=== PATIENT | female | born 1965 | race African-American/Black ===

== ENCOUNTER 2018-04-09 16:13 | Emergency (ER) | payer MEDICARE, MEDICAID | END 2018-04-09 16:57 | disposition home or self-care (01) | LOC: SCSER 16:13 | DX: S91.202A Unspecified open wound of left great toe with damage to nail, initial encounter (principal); S91.205A Unspecified open wound of left lesser toe(s) with damage to nail, initial encounter; E11.40 Type 2 diabetes mellitus with diabetic neuropathy, unspecified; Z79.4 Long term (current) use of insulin; I10 Essential (primary) hypertension; X58.XXXA Exposure to other specified factors, initial encounter | CPT/HCPCS: 99283 ==

== ENCOUNTER 2020-02-20 10:33 | Inpatient (IN) | payer MEDICARE, MEDICAID ==
[~2020-02-20 10:33] MED LIST: Dexamethasone 20 MG/5 ML VIAL ONE; Glycopyrrolate 0.2 MG/ML 5 ML SYRINGE ONE; Lidocaine 1% PF 5 ML VIAL ONE; PHENYLEPHRINE-NS 100 MCG/ML 10 ML SYRINGE ONE; PROPOFOL 200 MG/20 ML VIAL ONE; Rocuronium Bromide 10 MG/ML (10ML VIAL) ONE; ePHEDrine 50 MG/ML VIAL ONE
[2020-02-20] MEDS ORDERED: Fentanyl 100 MCG/2 ML VIAL ONE ×4 (10:39→15:24)
[2020-02-20] MEDS ORDERED: Boostrix 0.5 ML (Tdap) VIAL ONE (10:50)
--- NOTE | 2020-02-20 11:09 | RAD ---
Exam: Right ankle 3 views: HISTORY: Injury from a fall, open ankle fracture COMPARISON: None FINDINGS: Severely displaced trimalleolar ankle fracture dislocation with disruption of the ankle mortise with possible minimal air within the joint IMPRESSION: Trimalleolar fracture dislocation with marked disruption of the ankle mortise and considerable malali gnment with what appears to be an exposed medial malleolus.
[2020-02-20 11:48] LABS: Anisocytosis SLIGHT = 6-15 cells (100X) (0-5/hpf); Band 12 % (5-11); Hemoglobin 7.6 g/dL (12.0-16.0); Lymphocytes 8 % (21-51); MDiff Complete? YES; Mean Corpuscular HGB CONC 33.9 g/dL (32.0-36.0); Mean Corpuscular Hemoglobin 33.1 pg (27.0-31.0); Mean Corpuscular Volume 97.8 fL (78.0-98.0); Monocytes 8 % (0-10); Neutrophil 72 % (42-75); Platelet Count 85 thou/uL (130-400); Platelet Morphology Comment Appears Decreased; Polychromasia SLIGHT = 2-3 cells (100X) (0-2/hpf); RBC Distribution Width 13.9 % (11.5-14.5); Red Blood Cell (RBC) Count 2.29 mill/uL (4.20-5.40); White Blood Cell (WBC) Count 8.8 thou/uL (4.8-10.8)
[2020-02-20 11:56] LABS: ALT (SGPT) 25 U/L (8-55); AST (SGOT) 38 U/L (5-34); Albumin 2.8 g/dL (3.5-5.0); Alkaline Phosphatase 144 U/L (40-110); Anion Gap 20 mmol/L (10-20); BUN (Urea Nitrogen) 66 mg/dL (9.8-20.1); Bilirubin, Total 3.6 mg/dL (0.2-1.2); Calc. Creatinine Clearance 0 mL/min (70-130); Calcium 9.2 mg/dL (7.8-10.44); Carbon Dioxide 19 mmol/L (22-29); Chloride 108 mmol/L (98-107); Globulin 4.8 g/dL (2.4-3.5); Glucose 486 mg/dL (70-105); Potassium 4.9 mmol/L (3.5-5.1); Protein, Total 7.6 g/dL (6.0-8.3); Sodium 142 mmol/L (136-145)
[2020-02-20 12:24] LABS: INR-International Normal Ratio 1.4; PTT 37.6 sec (22.9-36.1); Prothrombin Time 17.6 sec (12.0-14.7)
[2020-02-20 12:25] LABS: Magnesium 2.3 mg/dL (1.6-2.6); Phosphorus 4.2 mg/dL (2.3-4.7)
--- NOTE | 2020-02-20 13:24 | RAD ---
AP CHEST: HISTORY: Fall at home with injury to ankle. FINDINGS: Lungs appear clear. No infiltrate or vascular congestion. Heart size normal. Osseous structures appear intact. IMPRESSION: No acute finding. POS: AGW
--- NOTE | 2020-02-20 13:25 | RAD ---
RIGHT KNEE 4 VIEWS: HISTORY: Fall at home with ankle fracture. FINDINGS: Joint spaces are preserved. Mild degenerative change at the knee. No fracture. IMPRESSION: No acute finding. POS: AGW
--- NOTE | 2020-02-20 13:25 | RAD ---
RIGHT HIP 2 VIEWS: HISTORY: Fall at home with ankle fracture. FINDINGS: Femoral head contour is normal. No fracture or significant degenerative change. No osseous abnormal ity identified. IMPRESSION: No acute finding. POS: AGW
[2020-02-20] MEDS ORDERED: hydrALAZINE 20 MG/ML VIAL SLOW IVP PRN ×2 (13:36→21:06)
[2020-02-20] MEDS ORDERED: Dextrose 50% Abboject 50 ML SYRINGE SLOW IVP PRN ×2 (13:36→21:05)
[2020-02-20] MEDS ORDERED: Dextrose 5% in Water 1,000 ML IV PRN ×2 (13:36→21:06)
[2020-02-20] MEDS ORDERED: Ondansetron PF 4 MG/2 ML Vial IVP PRN (13:36)
[2020-02-20] MEDS ORDERED: Insulin Regular 300 UNITS/3 ML VIAL SC PRN (13:36)
[2020-02-20] MEDS ORDERED: Fentanyl 100 MCG/2 ML VIAL SLOW IVP PRN ×2 (13:40→21:06)
[2020-02-20] MEDS ORDERED: Sodium Chloride 0.9% 1,000 ML IV SCH (13:45)
[2020-02-20] MEDS ORDERED: Insulin Regular 300 UNITS/3 ML VIAL ONE ×3 (14:00→15:19)
--- NOTE | 2020-02-20 14:31 | HP ---
CONSULTING PHYSICIAN: Jose Oquendo MD HISTORY OF PRESENT ILLNESS: The patient is a 54-year-old female, presented to the emergency department via EMS after a mechanical fall from one step. The patient reports she rolled her ankle and fell onto her right side. She denies hitting her head or loss of consciousness. Does not take any anticoagulation. The patient's motor and sensation function of bilateral upper and lower extremities are at baseline. She reports that she has tingling in her fingers and feet with decreased sensation all the time. This is from uncontrolled diabetes and has been going on for the past year or more. The patient denies any pain anywhere else. She complains of chronic abdominal pain after a hernia repair with mesh. She denies chest pain, shortness of breath, nausea, vomiting, diarrhea at this time. PAST MEDICAL HISTORY: Includes diabetes, high blood pressure, hyperlipidemia, chronic anemia. PAST SURGICAL HISTORY: Abdominal hernia repair with mesh, hysterectomy. SOCIAL HISTORY: The patient lives at home. She uses a walker to get around the house sometimes. Does not use a walker outside the house. She denies any tobacco use. Reports drinking about 2 glasses of wine a day. Denies any drug use. MEDICATIONS: The patient is a poor historian, but reports she takes Tylenol and metformin. She is supposed to be taking insulin as well, but is intermittently compliant. She does not have a primary care physician anymore as she says she does not like that physician and she was not helping her. She uses [facility] in [facility] and that was due to for her medications. The patient also takes tramadol p.r.n. ALLERGIES: NO KNOWN DRUG ALLERGIES. PHYSICAL EXAMINATION: VITAL SIGNS: Temperature 98.2, pulse 97, respirations 18, oxygen saturation 100% on 2 L nasal cannula, and blood pressure 108/65. PRIMARY SURVEY: Airway intact. Adequate breath sounds bilaterally. 2+ pulses in bilateral radials, femorals, and DPs. GCS 15. Gross motor and sensation are intact. The patient has an open fracture to her right ankle, which has been splinted. Bleeding is controlled. SECONDARY SURVEY: HEAD: Normocephalic, atraumatic. No gross palpable skull deformities or tenderness. ENT: No signs of trauma. EYES: Pupils 3 to 2, equal, round, reactive to light bilaterally. C-SPINE: No step-offs or deformities. Nontender. C-collar not in place. CHEST: Nontender. No crepitus. No abrasions or ecchymosis. Equal chest movement. ABDOMEN: Soft, nontender, nondistended. PELVIS: Stable to palpation. Right side lateral tenderness with no signs of deformity. RECTAL: Deferred. GENITOURINARY: Deferred. BACK/SPINE: No step-offs, deformities, or tenderness to palpation of thoracic or lumbar spine. No abrasions or ecchymosis noted. 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 Gross normal sensation x4 extremities. LABORATORY FINDINGS: White count 8.8, hemoglobin 7.6, hematocrit 22.4, platelets 85. INR 1.4. Sodium 142, potassium 4.9, chloride 109, bicarb 19, BUN 66, creatinine 2.05, glucose 486, phosphorus 4.2, magnesium 2.3, total bilirubin 3.5, AST 38, ALT 25. DIAGNOSTIC FINDINGS: X-ray of the right hip demonstrates no acute findings. X-ray of the right knee demonstrates no acute findings. X-ray of the right ankle demonstrates a trimalleolar fracture/dislocation with marked disruption of the ankle mortise and considerable malalignment with what appears to be an exposed medial malleolus. Chest x-ray demonstrates no acute findings. ASSESSMENT: 1. Status post mechanical fall from standing. 2. Right open trimalleolar fracture/dislocation. 3. Acute hyperglycemia. 4. History of diabetes, hyperlipidemia, hypertension, and chronic anemia. PLAN: The patient will be admitted to the Trauma Service. She will go to the regular surgical nursing floor. We will treat her hyperglycemia. She is to receive IV fluids and insulin down here in the emergency department and then go to Day Stay, and then subsequently to the OR before going to the floor. Postop, she will work with Physical and Occupational Therapy. We will start the patient on folic acid and vitamin C. We will complete a med rec and restart her medications as clinically indicated. We will also complete a troponin preoperatively. If there is concern, we will consult Cardiology for preoperative evaluation. EKG is unconcerning. The patient is not having any active signs of OK, but is very unhealthy at baseline. We will have packed red blood cells and FFP on hold for the OR. This patient was discussed with Dr. Coon before this dictation. Job ID: [id number]
[2020-02-20 14:41] LABS: Troponin I Less than 0.010 ng/mL (< 0.028)
[2020-02-20] MEDS ORDERED: Gabapentin 300 MG CAP PO SCH ×2 (15:00→21:00)
[2020-02-20 15:07] LABS: SARS-CoV-2 NAA Rapid Test Not Detected (NotDetected)
--- NOTE | 2020-02-20 16:03 | RAD ---
Exam:3 views right ankle HISTORY: Fracture. External cast placement and reduction. COMPARISON: 02/20/2020 at 10:39 AM FINDINGS: Interval placement of overlying fiberglass cast. Limited evaluation of fine bony detail. Pe rsistent dislocation of the distal fibula and medial malleolus to remain. There is diffuse bone demineralization. IMPRESSION: External casting material placement. Persistent displacement.
[2020-02-20] MEDS ORDERED: Phenylephrine 10 MG/ML VIAL ONE (16:06)
[2020-02-20] MEDS ORDERED: Ferrous Sulfate 325 MG TAB PO SCH (17:00)
--- NOTE | 2020-02-20 17:14 | RAD ---
Exam:Intraoperative fluoroscopy HISTORY: ORIF right ankle COMPARISON: None Exposure: 106.2 seconds, 2.43 mg FINDINGS: 3 intraoperative fluoroscopic images demonstrate internal fixation placement of a single wi re along the distal fibula and 2 screws at the level of the medial malleolus. IMPRESSION: Intraoperative fluoroscopy as above.
[2020-02-20] MEDS ORDERED: Promethazine HCl 25 MG/ML VIAL SLOW IVP PRN ×2 (17:43→18:18)
[2020-02-20] MEDS ORDERED: Promethazine HCl 25 MG/ML VIAL IM PRN ×2 (17:43→18:18)
[2020-02-20] MEDS ORDERED: Ondansetron HCl/PF 4 MG/2 ML Vial IVP PRN ×2 (17:43→18:18)
[2020-02-20 18:29] LABS: Hemoglobin A1c 8.8 % (4.0-6.0)
[2020-02-20] MEDS: Acetaminophen 325 MG TAB PO SCH ×3 (19:49→23:17)
[2020-02-20] MEDS: traMADol HCl 50 MG TAB PO SCH ×3 (19:50→23:17)
--- NOTE | 2020-02-20 20:01 | CON ---
DATE OF CONSULTATION: 02/20/2020 HISTORY OF PRESENT ILLNESS: Ms. Noriega is a 54-year-old female, status post ground level fall, sustaining an open right ankle fracture. The patient was per report having pain in her right foot earlier this weekend on Friday. She is a diabetic. She has neuropathic foot. Per report, she has difficulty with moving her toes. She has falls secondary to this. The patient's pain is increasing, has had issues since that time. The patient presents with consult by ER for right open fracture with Dr. Douglass. The patient is currently splinted, closed reduced on-call at the OR. PAST MEDICAL HISTORY: Significant for end-stage liver disease, cirrhosis, hypertension, and diabetes with diabetic neuropathy on insulin. PAST SURGICAL HISTORY: Hernia repair and hysterectomy. ALLERGIES: NO KNOWN DRUG ALLERGIES. MEDICATIONS: Unknown. Reported; 1. Atenolol. 2. Lisinopril. 3. Lactulose. 4. Metformin. 5. Tramadol. 6. Insulin. SOCIAL HISTORY: The patient states she drinks 2 to 3 drinks a day. The patient lives with her friend. Denies illicit drug use. No history of smoking tobacco products. REVIEW OF SYSTEMS: Negative except for as above. PHYSICAL EXAMINATION: VITAL SIGNS: The patient's vital signs in the ED were blood pressure 108/69, 97 pulse, 18 rate, and temperature 98.2. Pain 7/10. O2 saturations 100% on 2 L. GENERAL: Alert and oriented female, in no acute distress. Resting in bed. EXTREMITIES: Right lower extremity, the patient has minimal pain with manipulation of the joint. She has a splint clean, dry, and intact. There is a 10 cm laceration on the medial aspect of the ankle, where the medial malleolus protruded per ER report. The patient has warm and perfused toes. She has sluggish refill. The patient just cannot flex or extend her toes, has limited sensation with severe pinch. No knee effusion. No hip external rotation pain. LABORATORY DATA: She has an INR of 1.4. She has a CBC of 7.6 and 22. Alkaline phosphatase of 144 and AST of 38. The patient has 85 platelets. Glucose at bedside was 413. IMPRESSION: Right open ankle fracture dislocation neuropathic foot, poorly-controlled diabetic with end-stage liver disease, currently in diabetic ketoacidosis. ASSESSMENT AND PLAN: The patient will have her blood sugars improved. The patient requires an open reduction and internal fixation versus external fixator placement versus transcalcaneal pin to help with maintaining her ankle joint allowing her wound to heal. I discussed with the patient she has a significant problem that could lead to amputation of her right limb. I discussed the risks and benefits of surgery to include pain, scar, bleeding, infection, damage to vital structures, decreased range of motion and strength, failure of surgery, need for hardware removal, need for future surgeries, loss of life or limb. I explained to her that her lack of medical care will potentially lead to her untimely as well as her loss for leg, we can better control diabetes and her end-stage liver disease. The patient will be admitted to Trauma. She will have her blood sugars improved in the ED for going urgently to the surgery. She received Ancef and tetanus per protocol. Job ID: [id number] [facility]
[2020-02-20] MEDS ORDERED: Ascorbic Acid 500 mg Chewable Tablet PO SCH (21:00)
[2020-02-20] MEDS ORDERED: Famotidine 20 MG TAB PO SCH (21:00)
[2020-02-20] MEDS ORDERED: Senokot S 8.6-50 MG TAB PO SCH (21:00)
[2020-02-20 21:01] LABS: #Basophils 0.1 thou/uL (0.0-0.2); #Lymphocytes 0.2 thou/uL (1.20-3.40); #Monocytes 0.4 thou/uL (0.11-0.59); #Neutrophils 6.2 thou/uL (1.40-6.50); %Basophils 1.6 % (0.0-1.0); %Eosinophils 0.1 % (0.0-10.0); %Lymphocytes 3.4 % (21.0-51.0); %Monocytes 5.4 % (0.0-10.0); %Neutrophils 89.5 % (42.0-75.0); Hemoglobin 9.9 g/dL (12.0-16.0); Mean Corpuscular HGB CONC 32.8 g/dL (32.0-36.0); Mean Corpuscular Hemoglobin 32.6 pg (27.0-31.0); Mean Corpuscular Volume 99.4 fL (78.0-98.0); Mean Platelet Volume 9.3 fL (7.4-10.4); Platelet Count 58 thou/uL (130-400); RBC Distribution Width 15.2 % (11.5-14.5); Red Blood Cell (RBC) Count 3.04 mill/uL (4.20-5.40); White Blood Cell (WBC) Count 6.9 thou/uL (4.8-10.8)
[2020-02-20 21:19] LABS: Anion Gap 19 mmol/L (10-20); BUN (Urea Nitrogen) 53 mg/dL (9.8-20.1); Calc. Creatinine Clearance 0 mL/min (70-130); Carbon Dioxide 20 mmol/L (22-29); Chloride 113 mmol/L (98-107); Glucose 310 mg/dL (70-105); Magnesium 2.1 mg/dL (1.6-2.6); Phosphorus 4.2 mg/dL (2.3-4.7); Potassium 5.6 mmol/L (3.5-5.1); Sodium 146 mmol/L (136-145)
[2020-02-20] MEDS ORDERED: Lactated Ringer's 1,000 ML IV SCH (21:45)
[2020-02-20] MEDS: Senokot S 8.6-50 MG TAB PO SCH (21:53)
[2020-02-20] MEDS: Famotidine 20 MG TAB PO SCH (21:53)
[2020-02-20] MEDS: Ascorbic Acid 500 mg Chewable Tablet PO SCH (21:54)
[2020-02-20] MEDS: cefTRIAXone\\ROCEPHIN 2 GM in Sodium Chloride 0.9% 100 ML IVPB SCH (21:54)
[2020-02-20] MEDS: Insulin Regular 300 UNITS/3 ML VIAL SC PRN (21:55)
--- NOTE | 2020-02-20 23:52 | OP ---
DATE OF PROCEDURE: 02/20/2020 PREOPERATIVE DIAGNOSES: 1. Right open ankle fracture dislocation, trauma ankle fracture. 2. 7 cm traumatic laceration. POSTOPERATIVE DIAGNOSES: 1. Right open ankle fracture dislocation, trauma ankle fracture. 2. 7 cm traumatic laceration. PROCEDURE PERFORMED: 1. Irrigation and debridement, open fracture. 2. Open reduction, internal fixation of trauma ankle fracture with operative fixation lateral and medial malleolus. 3. Application of incisional wound VAC. 4. Closure of a 7 cm laceration. 5. Application of short-leg splint. PNEUMATIC TOOL REPAIRER: Shemar Sarmiento. ANESTHESIA: Patient received general anesthesia. ESTIMATED BLOOD LOSS: 100 mL. TOURNIQUET TIME: 35 minutes at 300 mmHg. URINE OUTPUT: None. IV FLUIDS: 900, 2 units of blood. IMPLANTS: Patient received a 2 x 3.5 cannulated screw, 3 x 3 mm flexible nail, as well as incisional wound VAC. COMPLICATIONS: None. HISTORY OF PRESENT ILLNESS: Ms. Noriega is a 54-year-old female, who presents with open ankle fracture, dislocation, 7 cm laceration transverse to medial aspect is trimalleolar ankle fracture. We discussed with the patient that she has a diabetic ketoacidosis. She is an arthrosis patient. She has a neuropathy. I discussed with her that I have a big concern of her potential healing of this wound. I have concern that she may displace the fracture if she walks on it and says she may lose her leg. I discussed the risks and benefits of surgery to include pain, scar, bleeding, infection, damage to vital structures, decreased range of motion and strength, fracture above the stem, implants, need for further surgeries, removed of the hardware, damage to vital structures, loss of life, limb. The patient understood these risks and benefits, elected to proceed. DESCRIPTION OF PROCEDURE: After time-out was performed, the patient's right lower extremity was prepped and draped in a sterile fashion with Betadine. After time-out, we started working on the leg with washing the joint, dislocating the joint. We saw all the posterior tendons through the medial wound, there was 7 cm laceration that was transverse right at the ankle joint line. We extended about a cm and a half to help with skin tension built. We have to use stab holes to place our medial mal screws. We washed out the joint with 3 L of fluid curetting bone soft tissue. We placed our medial mal screws first, placing it percutaneously through stab holes as did not want to open the patient's wound laterally and place a plate for concern for neuropathic foot reasons proximity to the skin scar, wanting only provisional temporary fixation with limited incisions as possible given the patient's neuropathic foot. After completing our washout, we placed get K-wires medially through stab holes and pin medial malleolus, placing 3 5 partially-threaded screws, which had good fixation of medial malleolus, posterior malleolus. We looked at the entire tibial plafond, which showed no articular surface incongruity, but did have a posterior mal component. It was near reduction, but was not fully anatomically reduced. The lateral malleolus we helped with lengthen and internalizing the posterior fragment. We placed a 3.2 drill bit, and placed a 3-0 flexible nail, which we passed up the fibula. We bent it, hammered it in place making sure it was under subcutaneous skin to use this as a lateral support. The patient had good overall stability and no subluxation. We then washed our incision again medially and laterally. We closed the lateral incision with 2-0 Vicryl and 3-0 nylon stitches. We closed the little stab holes with 3-0 nylon. We closed the traumatic laceration with trauma stitches [id number] with a 3-0 nylon. Underneath that, we have closed with 2-0 with whatever fascial plane we could pull together off the periosteum as well as some of the extensor retinaculum together closed over the bone. After completing a 7 cm traumatic laceration closure, I placed incisional back over the medial incision, placed Xeroform, and Gauze over the rest of the incisions, placed the soft tissue padding and A and O splint to help protect her ankle. The patient will be admitted to Trauma, she will on 24 hours of antibiotics. The patient will be nonweightbearing for likely 12 weeks. I will likely transition her to a cast when I see her back in my clinic once the sutures were cleared. The patient's outlook is guarded. I am concerned for her soft tissue wound. I am concerned that her poor medical control and concerned about the potential risk for future amputation. The patient will be admitted per Trauma. My catering assistant helped me with the positioning, reduction, implantation, creating closure and application of splint. Job ID: [id number] MTDD
[2020-02-21] MEDS: Insulin Regular 300 UNITS/3 ML VIAL SC PRN ×2 (01:41→04:14)
[2020-02-21 02:18] VITALS: BMI 26.9
[2020-02-21] MEDS: Acetaminophen 325 MG TAB PO SCH ×4 (04:11→22:07)
[2020-02-21] MEDS: traMADol HCl 50 MG TAB PO SCH ×4 (04:12→22:07)
--- NOTE | 2020-02-21 04:45 | PRG ---
DATE OF SERVICE: The patient was admitted today status post a fall in which she sustained an open ankle fracture. This evening, she underwent open reduction and internal fixation of her right open ankle fracture. She tolerated this procedure well. She was anemic upon arrival in the emergency department, and she did receive 1 unit of packed red blood cells in the Emergency Department. Postoperatively, her H and H were 9.9 and 30.2. We will recheck her labs in the morning, begin oral pain medications and diet, begin physical and occupational therapy, and discuss placement. Job ID: [id number]
[2020-02-21 05:52] LABS: Anion Gap 18 mmol/L (10-20); BUN (Urea Nitrogen) 55 mg/dL (9.8-20.1); Calc. Creatinine Clearance 44 mL/min (70-130); Calcium 8.9 mg/dL (7.8-10.44); Carbon Dioxide 19 mmol/L (22-29); Chloride 111 mmol/L (98-107); Glucose 396 mg/dL (70-105); Magnesium 2.1 mg/dL (1.6-2.6); Phosphorus 4.3 mg/dL (2.3-4.7); Potassium 4.8 mmol/L (3.5-5.1); Sodium 143 mmol/L (136-145)
[2020-02-21 06:04] LABS: #Lymphocytes 0.3 thou/uL (1.20-3.40); #Monocytes 0.5 thou/uL (0.11-0.59); #Neutrophils 5.9 thou/uL (1.40-6.50); %Eosinophils 0.1 % (0.0-10.0); %Lymphocytes 4.5 % (21.0-51.0); %Monocytes 7.1 % (0.0-10.0); %Neutrophils 88.4 % (42.0-75.0); Mean Corpuscular HGB CONC 33.4 g/dL (32.0-36.0); Mean Corpuscular Hemoglobin 32.2 pg (27.0-31.0); Mean Corpuscular Volume 96.3 fL (78.0-98.0); Platelet Count 60 thou/uL (130-400); RBC Distribution Width 15.4 % (11.5-14.5); Red Blood Cell (RBC) Count 3.09 mill/uL (4.20-5.40); White Blood Cell (WBC) Count 6.7 thou/uL (4.8-10.8)
[2020-02-21] MEDS: Sodium Chloride 0.45% 1,000 ML IV SCH ×2 (06:54→15:39)
[2020-02-21] MEDS ORDERED: Insulin Regular 300 UNITS/3 ML VIAL SC PRN ×2 (07:58)
[2020-02-21] MEDS ORDERED: Ferrous Sulfate 325 MG TAB PO SCH (08:00)
[2020-02-21] MEDS ORDERED: Polyethylene Glycol 3350 17 GM Packet PO SCH (09:00)
[2020-02-21] MEDS: Polyethylene Glycol 3350 17 GM Packet PO SCH (09:56)
[2020-02-21] MEDS: Insulin Glargine 20 UNITS in Pre-Filled Syringe 1 EACH SC SCH (09:56)
[2020-02-21] MEDS: Famotidine 20 MG TAB PO SCH (09:57)
[2020-02-21] MEDS: Senokot S 8.6-50 MG TAB PO SCH ×2 (09:57→22:06)
[2020-02-21] MEDS: Pregabalin 75 MG CAP PO SCH ×2 (09:58→22:07)
[2020-02-21] MEDS: Ascorbic Acid 500 mg Chewable Tablet PO SCH ×2 (10:02→22:06)
[2020-02-21] MEDS: HumaLOG 300 UNITS/3 ML VIAL SC PRN ×2 (16:03→22:36)
[2020-02-21] MEDS: cefTRIAXone\\ROCEPHIN 2 GM in Sodium Chloride 0.9% 100 ML IVPB SCH (22:05)
[2020-02-21 22:06] LABS: Hemoglobin A1c 7.8 % (4.0-6.0)
[2020-02-21] MEDS: Ferrous Sulfate 325 MG TAB PO SCH (22:08)
[2020-02-22] MEDS: HumaLOG 300 UNITS/3 ML VIAL SC PRN ×4 (01:18→21:30)
[2020-02-22] MEDS: Acetaminophen 325 MG TAB PO SCH ×4 (03:18→20:13)
[2020-02-22] MEDS: traMADol HCl 50 MG TAB PO SCH ×4 (03:19→20:14)
--- NOTE | 2020-02-22 05:16 | PRG ---
DATE OF SERVICE: 02/21/2020 SUBJECTIVE: This is a 54-year-old female, who is admitted for a trimalleolar right ankle fracture, status post a fall from standing down one step. She is now on postoperative day 1 after an irrigation and debridement as well as open reduction and internal fixation of her right ankle fracture. This morning on rounds, she was seen just after physical therapy. She reported excessive pain, had not yet had her pain medications for the morning prior to participating in physical therapy. She otherwise did not offer any complaints this morning. She was seen again this afternoon and reports that her pain is well controlled with her current pain regimen. OBJECTIVE: VITAL SIGNS: Temperature 97.4, heart rate 86, respirations 14, O2 saturation 99% on room air, and blood pressure 145/77. GENERAL: She is resting comfortably in bed with her right foot elevated on a pillow. No acute distress. HEENT: Normocephalic, atraumatic. Grossly unremarkable. Right scleral icterus. CARDIAC: Regular rate and rhythm. No murmurs noted. LUNGS: Clear to auscultation bilaterally. ABDOMEN: Bowel sounds present. Nontender, although abdomen is distended. EXTREMITIES: 2+ peripheral pulses. Unable to palpate pulse in right lower extremity due to casting, but toes are warm on palpation. NEUROLOGIC: GCS 15. LABORATORY FINDINGS: WBC 6.7, hemoglobin 10.0, hematocrit 29.8, and platelet count 60. Chemistry; sodium 143, potassium 4.8, chloride 111, carbon dioxide 19, BUN 55, creatinine 1.75, glucose 396, calcium 8.9, phosphorus 4.3, and magnesium 2.1. IMAGING STUDIES: No new imaging studies to be reviewed today. ASSESSMENT: 1. Status post mechanical fall from standing. 2. Right open trimalleolar fracture dislocation, status post open reduction and internal fixation. 3. Acute hyperglycemia in chronically poor control of diabetes. 4. History of cirrhosis, hyperlipidemia, hypertension, and chronic anemia. PLAN: We will continue current diet, pain regimen, and supportive care. Continue with physical therapy and occupational therapy. The patient should be given pain medication prior to participation in physical therapy. Today, we started Lantus at 20 units along with aggressive sliding scale Humalog for better control of her hyperglycemic state. We will continue to titrate her Lantus during her hospital stay for better glycemic control to enhance healing. The patient also seems to have a history of alcohol abuse. She does endorse drinking 2 to 3 glasses of wine per day. We will need to monitor for signs of alcohol withdrawal. The patient does not currently have a primary care provider. Discussed with her today that it will be very important for her to find and establish with a primary care physician upon discharge for better management of her multiple medical problems, particularly in this postsurgical healing phase. This patient was seen on rounds with Dr. Garcia this morning. Job ID: [id number]
[2020-02-22 05:56] LABS: Anion Gap 15 mmol/L (10-20); BUN (Urea Nitrogen) 51 mg/dL (9.8-20.1); Calc. Creatinine Clearance 49 mL/min (70-130); Carbon Dioxide 20 mmol/L (22-29); Chloride 110 mmol/L (98-107); Glucose 179 mg/dL (70-105); Magnesium 2.2 mg/dL (1.6-2.6); Phosphorus 4.2 mg/dL (2.3-4.7); Potassium 4.2 mmol/L (3.5-5.1); Sodium 141 mmol/L (136-145)
[2020-02-22 06:12] LABS: Band 7 % (5-11); Hemoglobin 10.2 g/dL (12.0-16.0); Lymphocytes 6 % (21-51); MDiff Complete? YES; Mean Corpuscular HGB CONC 32.8 g/dL (32.0-36.0); Mean Corpuscular Hemoglobin 32.3 pg (27.0-31.0); Mean Corpuscular Volume 98.5 fL (78.0-98.0); Mean Platelet Volume 8.8 fL (7.4-10.4); Monocytes 4 % (0-10); Neutrophil 83 % (42-75); Platelet Count 73 thou/uL (130-400); Platelet Morphology Comment Appears Decreased; RBC Distribution Width 16.1 % (11.5-14.5); Red Blood Cell (RBC) Count 3.17 mill/uL (4.20-5.40); White Blood Cell (WBC) Count 7.9 thou/uL (4.8-10.8)
[2020-02-22] MEDS: Polyethylene Glycol 3350 17 GM Packet PO SCH (08:57)
[2020-02-22] MEDS: Insulin Glargine 20 UNITS in Pre-Filled Syringe 1 EACH SC SCH (08:57)
[2020-02-22] MEDS: Pregabalin 75 MG CAP PO SCH ×2 (08:58→20:16)
[2020-02-22] MEDS: Senokot S 8.6-50 MG TAB PO SCH ×2 (08:58→20:15)
[2020-02-22] MEDS ORDERED: Famotidine 20 MG TAB PO SCH (09:00)
[2020-02-22] MEDS: Ascorbic Acid 500 mg Chewable Tablet PO SCH ×2 (09:00→20:16)
[2020-02-22] MEDS: Heparin 5,000 UNITS/ML VIAL SC SCH ×2 (09:00→21:27)
[2020-02-22] MEDS: Ferrous Sulfate 325 MG TAB PO SCH ×2 (14:14→20:15)
[2020-02-22] MEDS: Atenolol 50 MG TAB PO SCH (14:14)
[2020-02-22] MEDS: Insulin Glargine 10 UNITS in Pre-Filled Syringe 1 EACH SC SCH (21:29)
[2020-02-23] MEDS: Acetaminophen 325 MG TAB PO SCH ×4 (03:01→20:30)
[2020-02-23] MEDS: traMADol HCl 50 MG TAB PO SCH ×4 (03:02→20:30)
--- NOTE | 2020-02-23 05:35 | PRG ---
DATE OF SERVICE: 02/22/2020 SUBJECTIVE: This is a 54-year-old female who was admitted for right trimalleolar ankle fracture, status post fall from standing down one step. She is now on postoperative day #2 after irrigation and debridement as well as open reduction and internal fixation of a right ankle fracture. This morning on rounds, she was resting comfortably in bed. She was trying to reach breakfast on her tray, which was just out of her reach. Her pain has been well controlled on her current regimen, and she has been trying to participate with physical therapy. She does not offer any complaints this morning. With some assistance her breakfast was placed within reach. OBJECTIVE: VITAL SIGNS: Temperature 97.5, pulse 80, respirations 16, O2 saturation 100% on room air, and blood pressure 136/69. GENERAL: Resting comfortably in bed. Right foot elevated on a pillow. No acute distress. HEENT: Normocephalic, atraumatic. Bilateral scleral icterus. CARDIAC: Regular rate and rhythm. No murmurs noted. LUNGS: Clear to auscultation bilaterally. ABDOMEN: Bowel sounds present. Nontender, although abdomen remains distended. EXTREMITIES: Right lower leg remains in cast. Toes are warm on palpation. 2+ peripheral pulses in all other extremities. NEUROLOGIC: GCS 14, -1 for confusion. LABORATORY FINDINGS: WBC 7.9, hemoglobin 10.2, hematocrit 31.2, and platelets 73. Sodium 141, potassium 4.2, chloride 110, carbon dioxide 20, BUN 51, creatinine 1.57, blood glucose 179, calcium 9.0, phosphorus 4.2, and magnesium 2.2. IMAGING STUDIES: No new imaging to be reviewed today. ASSESSMENT: 1. Status post mechanical fall from standing. 2. Right open trimalleolar fracture dislocation, status post open reduction and internal fixation. 3. Hyperglycemia and chronically poor control of diabetes. 4. History of cirrhosis, hyperlipidemia, hypertension, and chronic anemia. PLAN: We will continue her current diet, pain regimen, and supportive care including physical therapy and occupational therapy. She should continue to receive her pain medication prior to participation in physical therapy to improve her tolerance. Yesterday, Lantus was started at 20 units along with aggressive sliding scale Humalog. She did require 18 units of sliding scale. Today, we will give her the 20 units of Lantus this morning and we will add additional 10 units of Lantus at bedtime. Due to her multiple medical problems including poorly-controlled diabetes and history of cirrhosis, she will likely need to go to an inpatient rehab facility upon discharge, so that they may continue to adjust her medications under supervision while she participates in therapy. She is amenable to this. Discussed with Case Management and referral to be sent to [facility]. This patient was seen with Dr. Garcia this morning. Job ID: [id number]
[2020-02-23 07:52] LABS: Anion Gap 12 mmol/L (10-20); BUN (Urea Nitrogen) 41 mg/dL (9.8-20.1); Calc. Creatinine Clearance 56 mL/min (70-130); Calcium 8.7 mg/dL (7.8-10.44); Carbon Dioxide 20 mmol/L (22-29); Chloride 110 mmol/L (98-107); Glucose 136 mg/dL (70-105); Phosphorus 3.8 mg/dL (2.3-4.7); Potassium 4.3 mmol/L (3.5-5.1); Sodium 138 mmol/L (136-145)
[2020-02-23 07:55] LABS: Hemoglobin 10.3 g/dL (12.0-16.0); Mean Corpuscular HGB CONC 31.9 g/dL (32.0-36.0); Mean Platelet Volume 8.3 fL (7.4-10.4); Platelet Count 63 thou/uL (130-400); RBC Distribution Width 15.8 % (11.5-14.5); Red Blood Cell (RBC) Count 3.21 mill/uL (4.20-5.40); White Blood Cell (WBC) Count 6.1 thou/uL (4.8-10.8)
[2020-02-23 10:09] LABS: Band 12 % (5-11); Eosinophils 4 % (0-10); Lymphocytes 6 % (21-51); MDiff Complete? YES; Monocytes 16 % (0-10); Neutrophil 62 % (42-75); Platelet Morphology Comment Appears Decreased; Polychromasia SLIGHT = 2-3 cells (100X) (0-2/hpf)
[2020-02-23] MEDS: Pregabalin 75 MG CAP PO SCH ×2 (10:10→20:31)
[2020-02-23] MEDS: Ascorbic Acid 500 mg Chewable Tablet PO SCH ×2 (10:13→20:30)
[2020-02-23] MEDS: Senokot S 8.6-50 MG TAB PO SCH ×2 (10:15→20:32)
[2020-02-23] MEDS: Polyethylene Glycol 3350 17 GM Packet PO SCH (10:15)
[2020-02-23] MEDS: Insulin Glargine 20 UNITS in Pre-Filled Syringe 1 EACH SC SCH (10:15)
[2020-02-23] MEDS: Heparin 5,000 UNITS/ML VIAL SC SCH ×2 (10:15→20:32)
[2020-02-23] MEDS: Atenolol 50 MG TAB PO SCH (10:21)
[2020-02-23] MEDS: Ferrous Sulfate 325 MG TAB PO SCH ×2 (10:23→20:29)
--- NOTE | 2020-02-23 12:04 | RAD ---
EXAM: XR Pelvis AP STANDARD PROVIDED CLINICAL HISTORY: Injured fall. COMPARISON: Views right hip on 02/20/2020 FINDINGS: No fracture or dislocation is seen. The hips are symmetric in appearance bilaterally. Vascular calcif ications overlie the pelvis. IMPRESSION: No acute osseous abnormality.
[2020-02-23] MEDS: HumaLOG 300 UNITS/3 ML VIAL SC PRN ×2 (12:47→16:00)
[2020-02-23] MEDS: Insulin Glargine 10 UNITS in Pre-Filled Syringe 1 EACH SC SCH (20:32)
[2020-02-24] MEDS: Acetaminophen 325 MG TAB PO SCH ×4 (03:03→21:42)
[2020-02-24] MEDS: traMADol HCl 50 MG TAB PO SCH ×4 (03:03→21:42)
--- NOTE | 2020-02-24 06:23 | PRG ---
DATE OF SERVICE: 02/23/2020 SUBJECTIVE: This is a 54-year-old female, who was admitted for right trimalleolar ankle fracture status post fall from one stair. She is now on postop day 3 after irrigation and debridement as well as open reduction and internal fixation of a right ankle fracture. This morning, on rounds, she was uncomfortable due to pain. Her morning pain medication has not yet been given at the time of the encounter. Previously, her pain was well controlled on her current regimen. However, her morning medications are slightly delayed this morning. She is also endorsing right hip pain. She states that she has had this pain since before her fall, but is quite bothersome for her. She did have an x-ray of the hip on admission, which was normal; however, she has not had any imaging of the pelvis. OBJECTIVE: VITAL SIGNS: Temp 98.2, heart rate 84, respirations 19, 97% on room air, blood pressure 121/84. GENERAL: Resting in bed, mildly uncomfortable due to pain. Right foot elevated on a pillow. No acute distress. HEENT: Normocephalic, atraumatic. HEART: Regular rate and rhythm. No murmurs noted. LUNGS: Clear to auscultation bilaterally. ABDOMEN: Bowel sounds present. Nontender, although abdomen remains distended. EXTREMITIES: Right lower leg remains in cast. Toes are appropriately warm on palpation. 2+ peripheral pulses in all other extremities. She tolerates passive range of motion of the toes. NEUROLOGIC: GCS 15. LABORATORY FINDINGS: WBC 6.1, hemoglobin 10.3, hematocrit 32.2, platelets 63. Sodium 138, potassium 4.3, chloride 110, carbon dioxide 20, BUN 41, creatinine 1.38, glucose 136, calcium 8.7, phosphorus 3.8, magnesium 2.0. No new imaging to be reviewed this morning. ASSESSMENT: 1. Status post mechanical fall from standing. 2. Right open trimalleolar fracture dislocation, status post open reduction and internal fixation. 3. Poorly controlled type 2 diabetes, control improving with appropriate therapy. 4. History of cirrhosis, hyperlipidemia, hypertension, and chronic anemia. 5. Acute kidney injury. PLAN: We will continue her current diet, pain regimen, and supportive care including physical therapy and occupational therapy. This pain regimen seems to work for her, and her pain this morning seems to be from the delay in the medication. Due to her right hip pain, we will order an x-ray of the pelvis to assess for any pathology. Her blood sugar has improved to more appropriate range with her total of 30 units Lantus daily. Yesterday, she required 6 units of sliding scale insulin. We will not make any further adjustments to her insulin right now. Due to her multiple medical problems including poorly controlled diabetes, history of cirrhosis, she will likely need to go to an inpatient rehab facility upon discharge so that they may continue to adjust her medications under supervision while she participates in therapy. She is pending placement at [facility]. She has had an acute kidney injury during this admission, which continues to improve. This acute kidney injury was present on admission. We are currently holding nephrotoxic medications including her home Jardiance, lisinopril, and metformin as well as Lasix. Management of these medications is another reason why the patient needs to go to rehab upon discharge. The patient was seen and evaluated with Dr. Garcia on rounds this morning. Job ID: [id number]
[2020-02-24 06:47] LABS: Band 4 % (5-11); Eosinophils 4 % (0-10); Hemoglobin 9.7 g/dL (12.0-16.0); Lymphocytes 4 % (21-51); MDiff Complete? YES; Mean Corpuscular HGB CONC 34.3 g/dL (32.0-36.0); Mean Corpuscular Hemoglobin 33.9 pg (27.0-31.0); Mean Corpuscular Volume 98.7 fL (78.0-98.0); Mean Platelet Volume 8.8 fL (7.4-10.4); Monocytes 26 % (0-10); Neutrophil 62 % (42-75); Platelet Count 57 thou/uL (130-400); Platelet Morphology Comment Appears Decreased; RBC Distribution Width 15.1 % (11.5-14.5); Red Blood Cell (RBC) Count 2.87 mill/uL (4.20-5.40)
[2020-02-24] MEDS: Pregabalin 75 MG CAP PO SCH ×2 (09:23→21:41)
[2020-02-24] MEDS: Senokot S 8.6-50 MG TAB PO SCH ×2 (09:24→21:54)
[2020-02-24] MEDS: Polyethylene Glycol 3350 17 GM Packet PO SCH (09:24)
[2020-02-24] MEDS: Ascorbic Acid 500 mg Chewable Tablet PO SCH ×2 (09:25→21:41)
[2020-02-24] MEDS: Ferrous Sulfate 325 MG TAB PO SCH ×2 (09:25→21:41)
[2020-02-24] MEDS: Atenolol 50 MG TAB PO SCH (09:25)
[2020-02-24] MEDS: Insulin Glargine 20 UNITS in Pre-Filled Syringe 1 EACH SC SCH (09:26)
[2020-02-24] MEDS: Heparin 5,000 UNITS/ML VIAL SC SCH ×2 (10:22→22:49)
--- NOTE | 2020-02-24 12:50 | RAD ---
LEFT ANKLE 3 VIEWS: Date: 02/24/2020 HISTORY: Ankle pain. No history given of trauma. FINDINGS: The bones are demineralized. Calcaneal spurs are present. No joint effusion or fracture. Mild arthrit ic changes of the ankle and midfoot are noted. IMPRESSION: No acute findings. POS: ANTONETTE
[2020-02-24] MEDS: HumaLOG 300 UNITS/3 ML VIAL SC PRN ×3 (13:11→21:43)
[2020-02-24] MEDS: Insulin Glargine 10 UNITS in Pre-Filled Syringe 1 EACH SC SCH (21:43)
[2020-02-25] MEDS: traMADol HCl 50 MG TAB PO SCH ×4 (03:17→21:19)
[2020-02-25] MEDS: Acetaminophen 325 MG TAB PO SCH ×4 (03:17→21:20)
--- NOTE | 2020-02-25 06:42 | PRG ---
DATE OF SERVICE: 02/24/2020 SUBJECTIVE: This is a 54-year-old female who was admitted for right trimalleolar ankle fracture status post fall from one stair. She is now on postop day #4 after irrigation and debridement as well as open reduction and internal fixation. This morning on rounds, she is resting comfortably in a chair by the side of the bed. She has been participating in physical therapy and doing quite well with this. Currently, her pain was well controlled. She does not endorse any new complaints this morning. OBJECTIVE: VITAL SIGNS: Temperature 98.3, pulse 86, respirations 16, O2 saturation 99% on room air, and blood pressure 123/67. GENERAL: Sitting up in bedside chair, comfortable. Right foot elevated. No acute distress. HEENT: Normocephalic, atraumatic. Mild scleral icterus. HEART: Regular rate and rhythm. No murmurs noted. LUNGS: Clear to auscultation bilaterally. ABDOMEN: Nontender, although abdomen remains distended. EXTREMITIES: Right lower leg remains in cast. Toes are appropriately warm on palpation. 2+ peripheral pulses in other extremities. NEUROLOGIC: GCS 15. LABORATORY FINDINGS: WBC 5.0, hemoglobin 9.7, hematocrit 28.3, and platelets 57. Fasting [id number] glucose this morning 150. ASSESSMENT: 1. Status post mechanical fall from standing. 2. Right open trimalleolar fracture dislocation, status post open reduction and internal fixation. 3. Poorly-controlled type 2 diabetes, improving with appropriate therapy. 4. History of cirrhosis, hyperlipidemia, hypertension, chronic anemia. 5. Acute kidney injury, improving. PLAN: We will continue her current diet, pain regimen, and supportive care including physical therapy and occupational therapy. The pain regimen does seem to be working and she is making some improvement with physical and occupational therapy. Yesterday, we ordered an x-ray of her pelvis, which did not show any acute pathology. Due to her multiple medical problems including poorly-controlled diabetes, cirrhosis, she will likely need to go to an inpatient rehab facility, so that they may continue to adjust her medications under supervision while she participates in therapy. She is pending placement at [facility], currently waiting on insurance authorization. She would also benefit from monitoring in rehab of her acute kidney injury. Currently, we are holding nephrotoxic medications including her home Jardiance, lisinopril, and metformin as well as Lasix. Her diabetes is currently being managed with long-acting insulin and short-acting sliding scale insulin at higher doses than she was supposed to be taking outpatient. Management of these medical issues is why she needs to go to rehab facility. This patient was seen on rounds with Dr. Khan. Job ID: [id number]
[2020-02-25] MEDS: Ascorbic Acid 500 mg Chewable Tablet PO SCH ×2 (08:29→21:19)
[2020-02-25] MEDS: Senokot S 8.6-50 MG TAB PO SCH ×2 (08:29→21:32)
[2020-02-25] MEDS: Ferrous Sulfate 325 MG TAB PO SCH ×2 (08:29→21:19)
[2020-02-25] MEDS: Atenolol 50 MG TAB PO SCH (08:29)
[2020-02-25] MEDS: Pregabalin 75 MG CAP PO SCH ×2 (08:31→21:20)
[2020-02-25] MEDS: Polyethylene Glycol 3350 17 GM Packet PO SCH (08:33)
[2020-02-25] MEDS: Heparin 5,000 UNITS/ML VIAL SC SCH ×2 (08:33→21:19)
[2020-02-25] MEDS: Insulin Glargine 20 UNITS in Pre-Filled Syringe 1 EACH SC SCH (08:35)
[2020-02-25] MEDS: HumaLOG 300 UNITS/3 ML VIAL SC PRN ×2 (12:21→16:40)
--- NOTE | 2020-02-25 19:39 | PRG ---
DATE OF SERVICE: 02/25/2020 SUBJECTIVE: The patient is currently on the surgical floor. She is postop day 5, status post irrigation and debridement and open reduction and internal fixation of a right trimalleolar fracture. She is currently awaiting placement. She is tolerating a diet. Her pain is control. PHYSICAL EXAMINATION: VITAL SIGNS: Temperature is 98.3, heart rate 79, blood pressure 111/68, respirations 18, and oxygen saturation 100% on room air. GENERAL: The patient is resting comfortably in bed. She is awake, conversant, and appropriate. Meera Coma Scale is 15. HEENT: Unremarkable. RESPIRATIONS: Nonlabored. ABDOMEN: Nondistended. EXTREMITIES: Neurovascularly intact with right lower extremity immobilized in a clean, dry, and intact splint. LABORATORY DATA: There are no labs or radiographs to review this morning. ASSESSMENT AND PLAN: 1. Status post fall from standing. 2. Status post open reduction and internal fixation postop day 5 of right open trimalleolar fracture dislocation. 3. Poorly controlled type 2 diabetes, improving. 4. History of cirrhosis, hyperlipidemia, hypertension, chronic anemia. 5. Acute kidney injury, improving. Plan will be to continue encouraging physical and occupational therapy, supportive care, and await placement decision. Job ID: [id number]
[2020-02-25] MEDS: Insulin Glargine 10 UNITS in Pre-Filled Syringe 1 EACH SC SCH (21:19)
[2020-02-26] MEDS: traMADol HCl 50 MG TAB PO SCH ×3 (02:56→14:02)
[2020-02-26] MEDS: Acetaminophen 325 MG TAB PO SCH ×3 (02:56→14:01)
[2020-02-26] MEDS: Atenolol 50 MG TAB PO SCH (09:13)
[2020-02-26] MEDS: Ascorbic Acid 500 mg Chewable Tablet PO SCH (09:13)
[2020-02-26] MEDS: Ferrous Sulfate 325 MG TAB PO SCH (09:14)
[2020-02-26] MEDS: Heparin 5,000 UNITS/ML VIAL SC SCH (09:15)
[2020-02-26] MEDS: Insulin Glargine 20 UNITS in Pre-Filled Syringe 1 EACH SC SCH (09:18)
[2020-02-26] MEDS: Polyethylene Glycol 3350 17 GM Packet PO SCH (09:18)
[2020-02-26] MEDS: Pregabalin 75 MG CAP PO SCH (09:20)
[2020-02-26] MEDS: Senokot S 8.6-50 MG TAB PO SCH (09:20)
[2020-02-26] MEDS ORDERED: Cyclobenzaprine 10 MG TAB PO PRN (11:15)
[2020-02-26] MEDS ORDERED: hydrOXYzine 10 MG TAB PO PRN (11:15)
[2020-02-26] MEDS ORDERED: Melatonin 3 MG TAB PO PRN (11:18)
[2020-02-26] MEDS: HumaLOG 300 UNITS/3 ML VIAL SC PRN (11:32)
[2020-02-26 12:23] VITALS: BP 92/57; TEMP 98.1
--- NOTE | 2020-02-29 05:07 | PQF ---
CLINICAL DOCUMENTATION CLARIFICATION FORM: Dear : Cesario Diana Date / Time: 02/29/20 0507 Please exercise your independent, professional judgment in responding to the clarification form. Clinical indicators are provided on the bottom of this form for your review Please check appropriate box(es): [ ] Diabetes with DKA [ X ] Diabetes without DKA [ ] Other diagnosis, please specify [ ] Unable to determine In addition, please specify: Present on Admission (POA): [ ] Yes [ ] No [ ] Unable to determine Physician Signature: Date/Time: For continuity of documentation, please document condition throughout progress notes and discharge summary. Thank You To be completed by CDI/Coding staff for physician review: Present Clinical Indicators - Signs / Symptoms / Labs Results and Location in Medical Record [x] Glucose 486; 310; 396; 179; 136 Laboratory 02/19-02/22 [x] POC Glucose 413; 384; 305; 331; 403; 211 Laboratory 02/19-02/22 [x] BP 108/69, Pulse 97, Resp 18, Temp 98.2 Vital signs 02/19 [x] curretly in Diabetic ketoacidosis Consult p2 02/19 Dr Eldridge [x] Acute hyperglycemia in chronically poor control of diabetes PN 02/20 Present Risk Factors Results and Location in Medical Record [x] End stage liver disease Consult p1 02/19 Dr Eldridge [x] DM Consult p1 02/19 Dr Eldridge [x] Cirrhosis Consult p1 02/19 Dr Eldridge [x] HTN Consult p1 02/19 Dr Eldridge [x] DM with neuropathy Consult p1 02/19 Dr Eldridge Present Treatments Results and Location in Medical Record [x] IV D5W 1L MAY 26 [x] IV Insulin Glargine 20 units MAY 26 [x] IV Lactated Ringers MAY 26 [x] Glucose Monitoring Order 02/19 CDS/Founder Chairman And Chief Creative Officer Signature: Marta Ferrellanayeli Phone #: [phone] Date/Time: 02/29/2020 0501 This is a permanent part of the Medical Record [facility]
--- NOTE | 2020-02-29 15:09 | DIS ---
DATE OF ADMISSION: 02/20/2020 DATE OF DISCHARGE: 02/26/2020 ADMISSION DIAGNOSES: 1. Status post fall from standing. 2. Open right trimalleolar fracture dislocation. 3. Acute hyperglycemia. 4. History of diabetes, hyperlipidemia, hypertension, and chronic anemia. CONSULTATION: Orthopedics, Dr. Oquendo. PROCEDURES: 1. Irrigation and debridement of open fracture. 2. Open reduction and internal fixation of right lateral medial malleolus. 3. Application of incisional wound VAC. 4. Closure of 7 cm laceration. SUMMARY: The patient is a 54-year-old woman, who was brought to the emergency department after sustaining a ground level fall which she had an open right ankle fracture dislocation. She was taken to the operating room that night and undergo her above procedure, which she tolerated well. Due to her soft tissue injury in the extent of her injury, she was kept in the facility to ensure that there was no infection. She would eventually be discharged to rehab to continue working with Physical and Occupational Therapy. At time of discharge, her Meera Coma Scale is 15. She was tolerating a diet. Her pain was controlled. Her bowel function had returned. She will follow up with Dr. Oquendo in 14 days or sooner as needed. Job ID: [id number]
--- NOTE | 2020-03-04 16:15 | EKG ---
Test Reason : Blood Pressure : / mmHG Vent. Rate : 089 BPM Atrial Rate : 089 BPM P-R Int : 160 ms QRS Dur : 074 ms QT Int : 380 ms P-R-T Axes : 042 026 014 degrees QTc Int : 462 ms Normal sinus rhythm Possible Left atrial enlargement Cannot rule out Anterior infarct , age undetermined Abnormal ECG Confirmed by JOSE VASQUEZ M.D. ([id number]), offline editor ALEJANDRA CASRON ([id number]) on 03/04/2020 4:15:02 PM Referred By: Confirmed By:JOSE VASQUEZ M.D.
== END 2020-02-26 14:25 | DRG 493 ==
LOC: ERS 10:33 → SDC 15:10 → SURG B 15:11
PROVIDERS: ADMIT Surgery; ATTEND Specialist
PROC: 0QSG04Z Reposition Right Tibia with Internal Fixation Device, Open Approach (ICD-10-PCS; principal; 2020-02-20)
PROC: 0QSJ04Z Reposition Right Fibula with Internal Fixation Device, Open Approach (ICD-10-PCS; 2020-02-20)
PROC: 30233N1 Transfusion of Nonautologous Red Blood Cells into Peripheral Vein, Percutaneous Approach (ICD-10-PCS; 2020-02-20)
PROC: 0QSJXZZ Reposition Right Fibula, External Approach (ICD-10-PCS; 2020-02-20)
PROC: 0QSGXZZ Reposition Right Tibia, External Approach (ICD-10-PCS; 2020-02-20)
DX: S82.851B Displaced trimalleolar fracture of right lower leg, initial encounter for open fracture type I or II (principal); N17.9 Acute kidney failure, unspecified; Z20.828 Contact with and (suspected) exposure to other viral communicable diseases; Z23 Encounter for immunization; W17.89XA Other fall from one level to another, initial encounter; E78.5 Hyperlipidemia, unspecified; D64.9 Anemia, unspecified; E11.65 Type 2 diabetes mellitus with hyperglycemia; I10 Essential (primary) hypertension; E11.40 Type 2 diabetes mellitus with diabetic neuropathy, unspecified; K74.60 Unspecified cirrhosis of liver; F41.9 Anxiety disorder, unspecified; K72.90 Hepatic failure, unspecified without coma; Z79.4 Long term (current) use of insulin; Z90.49 Acquired absence of other specified parts of digestive tract; Z90.710 Acquired absence of both cervix and uterus; Z87.19 Personal history of other diseases of the digestive system; Z79.899 Other long term (current) drug therapy
CPT/HCPCS: 27840; 36415; 36416; 36430; 71045; 72170; 76000; 80048; 80053; 80307; 82010; 83036; 83735; 84100; 84484; 85025; 85610; 85730; 86850; 86900; 86901; 90471; 90715; 93005; 96365; 96375; 96376; C1713; C1769; G0390; J0690; J0696; J1100; J1644; J1815; J2370; J2704; J3010; J3490; P9016; U0002

== ENCOUNTER 2020-05-11 16:09 | Inpatient (IN) | payer MEDICARE, MEDICAID ==
[2020-05-11 17:00] LABS: #Basophils 0.1 thou/uL (0.0-0.2); #Eosinphils 0.1 thou/uL (0.0-0.7); #Lymphocytes 0.5 thou/uL (1.20-3.40); #Monocytes 1.3 thou/uL (0.11-0.59); #Neutrophils 8.6 thou/uL (1.40-6.50); %Eosinophils 0.9 % (0.0-10.0); %Lymphocytes 4.4 % (21.0-51.0); %Monocytes 11.9 % (0.0-10.0); %Neutrophils 81.8 % (42.0-75.0); Hemoglobin 11.6 g/dL (12.0-16.0); Mean Corpuscular HGB CONC 34.2 g/dL (32.0-36.0); Mean Corpuscular Volume 90.8 fL (78.0-98.0); Mean Platelet Volume 9.6 fL (7.4-10.4); Platelet Count 124 thou/uL (130-400); RBC Distribution Width 16.5 % (11.5-14.5); Red Blood Cell (RBC) Count 3.73 mill/uL (4.20-5.40); White Blood Cell (WBC) Count 10.5 thou/uL (4.8-10.8)
[2020-05-11 17:17] LABS: ALT (SGPT) 45 U/L (8-55); AST (SGOT) 52 U/L (5-34); Albumin 2.8 g/dL (3.5-5.0); Alkaline Phosphatase 252 U/L (40-110); Anion Gap 18 mmol/L (10-20); BUN (Urea Nitrogen) 101 mg/dL (9.8-20.1); Calc. Creatinine Clearance 0 mL/min (70-130); Calcium 9.1 mg/dL (7.8-10.44); Carbon Dioxide 15 mmol/L (22-29); Chloride 101 mmol/L (98-107); Globulin 7.8 g/dL (2.4-3.5); Glucose 208 mg/dL (70-105); Potassium 4.6 mmol/L (3.5-5.1); Protein, Total 10.6 g/dL (6.0-8.3); Sodium 129 mmol/L (136-145)
[2020-05-11 20:41] LABS: Bacteria/HPF None Seen HPF (None Seen); Bilirubin Negative (Negative); Blood, Urine Trace (Negative); Clarity Clear (Clear); Glucose, Urine (Dipstick) 500 mg/dL (Negative); Ketone, Urine Negative (Negative); Leukocyte 500 Leu/uL (Negative); Nitrite Negative (Negative); Protein, Urine (Dipstick) Negative (Neg-Trace); RBC/HPF 0-3 HPF (0-3); Specific Gravity, Urine 1.011 (1.002-1.036); Squamous Epithelial None Seen HPF (0-3); Urobilinogen Normal mg/dL (Less than 2); WBC/HPF 21-50 HPF (0-3); pH, Urine 5.5 (5.0-9.0)
[2020-05-11 20:52] LABS: Yeast-Budding Rare HPF (None Seen); Yeast-Hyphae 1+ HPF (None Seen)
[2020-05-11] MEDS ORDERED: cefTRIAXone\\ROCEPHIN 1 GM VIAL ONE (21:34)
[2020-05-11] MEDS ORDERED: Fluconazole 100 MG TAB PO SCH (21:45)
[2020-05-11 23:05] LABS: INR-International Normal Ratio 1.4; PTT 34.9 sec (22.9-36.1); Prothrombin Time 17.3 sec (12.0-14.7)
[2020-05-11] MEDS ORDERED: Dextrose 50% Abboject 50 ML SYRINGE SLOW IVP PRN (23:52)
[2020-05-11] MEDS ORDERED: Dextrose 5% in Water 1,000 ML IV PRN (23:52)
[2020-05-11] MEDS ORDERED: Ondansetron ODT 4 MG TAB PO PRN (23:52)
[2020-05-12] MEDS ORDERED: hydrOXYzine 10 MG TAB PO PRN (00:46)
[2020-05-12 00:51] VITALS: BMI 22.6
[2020-05-12 01:51] LABS: Creatinine, Urine 32.76 mg/dL (47-110); Protein, Urine Random Quant Less than 10 mg/dL (1-14)
[2020-05-12] MEDS ORDERED: Non-Formulary Item 1 EACH (Lactulose 10 Gm/15ml Oral Sol 10 GM/15 ML Ml) PO SCH (02:00)
[2020-05-12] MEDS: Lactated Ringer's 1,000 ML IV SCH ×4 (02:32→23:02)
[2020-05-12 05:15] LABS: SARS-CoV-2 PCR by NAA Not Detected (NotDetected)
[2020-05-12] MEDS: HumaLOG 300 UNITS/3 ML VIAL SC PRN ×4 (05:58→20:34)
[2020-05-12 06:38] LABS: #Basophils 0.1 thou/uL (0.0-0.2); #Eosinphils 0.1 thou/uL (0.0-0.7); #Lymphocytes 0.3 thou/uL (1.20-3.40); #Monocytes 1.2 thou/uL (0.11-0.59); #Neutrophils 8.8 thou/uL (1.40-6.50); %Basophils 1.3 % (0.0-1.0); %Eosinophils 0.5 % (0.0-10.0); %Lymphocytes 2.6 % (21.0-51.0); %Monocytes 11.4 % (0.0-10.0); %Neutrophils 84.2 % (42.0-75.0); Hemoglobin 10.3 g/dL (12.0-16.0); Mean Corpuscular HGB CONC 33.8 g/dL (32.0-36.0); Mean Corpuscular Hemoglobin 30.4 pg (27.0-31.0); Mean Corpuscular Volume 89.9 fL (78.0-98.0); Mean Platelet Volume 9.9 fL (7.4-10.4); Platelet Count 97 thou/uL (130-400); RBC Distribution Width 16.5 % (11.5-14.5); White Blood Cell (WBC) Count 10.5 thou/uL (4.8-10.8)
[2020-05-12 06:55] LABS: ALT (SGPT) 39 U/L (8-55); AST (SGOT) 50 U/L (5-34); Albumin 2.5 g/dL (3.5-5.0); Alkaline Phosphatase 220 U/L (40-110); Anion Gap 19 mmol/L (10-20); BUN (Urea Nitrogen) 91 mg/dL (9.8-20.1); Bilirubin, Total 2.6 mg/dL (0.2-1.2); CRP (Inflammatory) 1.04 mg/dL (= or < 0.5); Calc. Creatinine Clearance 26 mL/min (70-130); Calcium 8.5 mg/dL (7.8-10.44); Carbon Dioxide 13 mmol/L (22-29); Chloride 107 mmol/L (98-107); Globulin 6.8 g/dL (2.4-3.5); Glucose 254 mg/dL (70-105); Potassium 4.6 mmol/L (3.5-5.1); Protein, Total 9.3 g/dL (6.0-8.3); Sodium 134 mmol/L (136-145)
[2020-05-12] MEDS: Cholecalciferol 1,000 UNITS (25 MCG) TAB PO SCH (08:59)
[2020-05-12] MEDS: Ferrous Sulfate 325 MG TAB PO SCH ×2 (09:00→16:36)
[2020-05-12] MEDS: Ascorbic Acid 500 mg Chewable Tablet PO SCH ×2 (09:00→20:34)
[2020-05-12] MEDS ORDERED: Non-Formulary Item 1 EACH (Insulin Detemir [Levemir] 100 UNIT/ML Vial) SQ SCH ×2 (09:00→21:00)
[2020-05-12] MEDS: Atenolol 50 MG TAB PO SCH (09:00)
[2020-05-12] MEDS: Insulin Glargine 20 UNITS in Pre-Filled Syringe 1 EACH SC SCH (10:13)
[2020-05-12] MEDS: cefTRIAXone\\ROCEPHIN 1 GM in Sodium Chloride 0.9% 100 ML IVPB SCH (20:33)
[2020-05-12] MEDS: Fluconazole 100 MG TAB PO SCH (20:34)
[2020-05-12] MEDS ORDERED: Insulin Glargine 10 UNITS in Pre-Filled Syringe 1 EACH SC SCH (21:00)
[2020-05-12] MEDS ORDERED: Insulin Glargine 20 UNITS in Pre-Filled Syringe 1 EACH SC SCH (21:00)
[2020-05-13] MEDS: Lactated Ringer's 1,000 ML IV SCH ×3 (03:09→20:33)
[2020-05-13 06:06] LABS: #Eosinphils 0.1 thou/uL (0.0-0.7); #Lymphocytes 0.5 thou/uL (1.20-3.40); #Neutrophils 6.5 thou/uL (1.40-6.50); %Basophils 0.1 % (0.0-1.0); %Eosinophils 0.9 % (0.0-10.0); %Lymphocytes 6.1 % (21.0-51.0); %Monocytes 12.8 % (0.0-10.0); %Neutrophils 80.2 % (42.0-75.0); Hemoglobin 9.3 g/dL (12.0-16.0); Mean Corpuscular HGB CONC 33.4 g/dL (32.0-36.0); Mean Corpuscular Hemoglobin 30.2 pg (27.0-31.0); Mean Corpuscular Volume 90.3 fL (78.0-98.0); Mean Platelet Volume 10.2 fL (7.4-10.4); Platelet Count 75 thou/uL (130-400); RBC Distribution Width 16.7 % (11.5-14.5); Red Blood Cell (RBC) Count 3.07 mill/uL (4.20-5.40); White Blood Cell (WBC) Count 8.1 thou/uL (4.8-10.8)
[2020-05-13] MEDS: HumaLOG 300 UNITS/3 ML VIAL SC PRN ×4 (06:35→20:32)
[2020-05-13 06:53] LABS: ALT (SGPT) 35 U/L (8-55); AST (SGOT) 36 U/L (5-34); Albumin 2.3 g/dL (3.5-5.0); Alkaline Phosphatase 224 U/L (40-110); Anion Gap 15 mmol/L (10-20); BUN (Urea Nitrogen) 66 mg/dL (9.8-20.1); Bilirubin, Total 2.7 mg/dL (0.2-1.2); Calc. Creatinine Clearance 32 mL/min (70-130); Calcium 8.5 mg/dL (7.8-10.44); Carbon Dioxide 16 mmol/L (22-29); Chloride 111 mmol/L (98-107); Globulin 6.1 g/dL (2.4-3.5); Glucose 226 mg/dL (70-105); Iron 54 ug/dL (50-170); Iron Binding Capacity, Total 240 mcg/dL (265-497); Potassium 4.8 mmol/L (3.5-5.1); Protein, Total 8.4 g/dL (6.0-8.3); Sodium 137 mmol/L (136-145)
[2020-05-13 07:11] LABS: Ferritin 148.45 ng/mL (10-291)
[2020-05-13 07:17] LABS: Vitamin B12 1315 pg/mL (211-911)
[2020-05-13 07:25] LABS: HBCM Index 0.12 S/CO (0-0.79); Hep A IgM AB Non-Reactive (NonReactive); Hep A IgM S/CO 0.12 S/CO (0-0.79); Hep B Surf Ag Non-Reactive S/CO (NonReactive); Hep C IgG Ab Non-Reactive (NonReactive); Hep C Index 0.16 S/CO (0-0.79); Hepatitis B Core IgM Abs Non-Reactive (NonReactive)
[2020-05-13] MEDS: Ascorbic Acid 500 mg Chewable Tablet PO SCH ×2 (08:21→20:32)
[2020-05-13] MEDS: Ferrous Sulfate 325 MG TAB PO SCH (08:21)
[2020-05-13] MEDS: Cholecalciferol 1,000 UNITS (25 MCG) TAB PO SCH (08:21)
[2020-05-13] MEDS: Atenolol 50 MG TAB PO SCH (08:26)
[2020-05-13] MEDS: Insulin Glargine 20 UNITS in Pre-Filled Syringe 1 EACH SC SCH (09:32)
[2020-05-13] MEDS: Albumin 25% 25 GM/100 ML BOT IVPB SCH ×3 (13:11→23:44)
[2020-05-13] MEDS: Insulin Glargine 30 UNITS in Pre-Filled Syringe 1 EACH SC SCH (20:31)
[2020-05-13] MEDS: Fluconazole 100 MG TAB PO SCH (20:32)
[2020-05-13] MEDS: cefTRIAXone\\ROCEPHIN 1 GM in Sodium Chloride 0.9% 100 ML IVPB SCH (20:32)
[2020-05-14] MEDS: Lactated Ringer's 1,000 ML IV SCH ×3 (03:15→21:47)
[2020-05-14] MEDS: HumaLOG 300 UNITS/3 ML VIAL SC PRN ×4 (05:57→21:46)
[2020-05-14] MEDS: Albumin 25% 25 GM/100 ML BOT IVPB SCH ×2 (05:57→12:26)
[2020-05-14 06:00] LABS: ALT (SGPT) 35 U/L (8-55); AST (SGOT) 39 U/L (5-34); Albumin 3.2 g/dL (3.5-5.0); Alkaline Phosphatase 217 U/L (40-110); Anion Gap 14 mmol/L (10-20); BUN (Urea Nitrogen) 44 mg/dL (9.8-20.1); Bilirubin, Total 2.6 mg/dL (0.2-1.2); Calc. Creatinine Clearance 35 mL/min (70-130); Calcium 8.8 mg/dL (7.8-10.44); Carbon Dioxide 17 mmol/L (22-29); Chloride 108 mmol/L (98-107); Globulin 4.5 g/dL (2.4-3.5); Glucose 356 mg/dL (70-105); Potassium 4.7 mmol/L (3.5-5.1); Protein, Total 7.7 g/dL (6.0-8.3); Sodium 134 mmol/L (136-145)
[2020-05-14 06:12] LABS: Band 5 % (5-11); Eosinophils 3 % (0-10); Hemoglobin 7.8 g/dL (12.0-16.0); Lymphocytes 4 % (21-51); MDiff Complete? YES; Mean Corpuscular HGB CONC 33.3 g/dL (32.0-36.0); Mean Corpuscular Hemoglobin 30.4 pg (27.0-31.0); Mean Corpuscular Volume 91.2 fL (78.0-98.0); Monocytes 12 % (0-10); Neutrophil 76 % (42-75); Platelet Count 45 thou/uL (130-400); Platelet Morphology Comment Appears Decreased; RBC Distribution Width 16.5 % (11.5-14.5); Red Blood Cell (RBC) Count 2.55 mill/uL (4.20-5.40)
[2020-05-14] MEDS: Cholecalciferol 1,000 UNITS (25 MCG) TAB PO SCH (08:31)
[2020-05-14] MEDS: Atenolol 50 MG TAB PO SCH (08:32)
[2020-05-14] MEDS: Ascorbic Acid 500 mg Chewable Tablet PO SCH ×2 (08:32→21:46)
[2020-05-14] MEDS: Folic Acid 1 MG TAB PO SCH (08:32)
[2020-05-14] MEDS ORDERED: Insulin Glargine 30 UNITS in Pre-Filled Syringe 1 EACH SC SCH (09:00)
[2020-05-14] MEDS ORDERED: Menthol/Camphor Lotion 222 ml Bottle TOP PRN (10:11)
[2020-05-14 11:43] LABS: INR-International Normal Ratio 1.5; PTT 40.1 sec (22.9-36.1); Prothrombin Time 18.6 sec (12.0-14.7)
[2020-05-14] MEDS ORDERED: HumaLOG 300 UNITS/3 ML VIAL SC SCH ×2 (12:00→17:00)
[2020-05-14 14:06] LABS: Hemoglobin 8.1 g/dL (12.0-16.0); Platelet Count 44 thou/uL (130-400)
[2020-05-14] MEDS ORDERED: Lidocaine 1% PF 5 ML VIAL ONE (14:13)
[2020-05-14] MEDS ORDERED: Sodium Bicarbonate 2.5 MEQ/5 ML VIAL ONE (14:13)
[2020-05-14] MEDS: HumaLOG 300 UNITS/3 ML VIAL SC SCH (17:28)
[2020-05-14] MEDS: Insulin Glargine 30 UNITS in Pre-Filled Syringe 1 EACH SC SCH (21:45)
[2020-05-14] MEDS: cefTRIAXone\\ROCEPHIN 1 GM in Sodium Chloride 0.9% 100 ML IVPB SCH (21:46)
[2020-05-14] MEDS: Fluconazole 100 MG TAB PO SCH (21:46)
[2020-05-15] MEDS: HumaLOG 300 UNITS/3 ML VIAL SC PRN ×2 (05:53→21:00)
[2020-05-15] MEDS: Lactated Ringer's 1,000 ML IV SCH ×3 (05:53→18:44)
[2020-05-15 06:04] LABS: ALT (SGPT) 35 U/L (8-55); AST (SGOT) 52 U/L (5-34); Albumin 3.1 g/dL (3.5-5.0); Alkaline Phosphatase 233 U/L (40-110); Anion Gap 13 mmol/L (10-20); BUN (Urea Nitrogen) 34 mg/dL (9.8-20.1); Bilirubin, Total 2.7 mg/dL (0.2-1.2); Calc. Creatinine Clearance 40 mL/min (70-130); Calcium 8.7 mg/dL (7.8-10.44); Carbon Dioxide 17 mmol/L (22-29); Chloride 109 mmol/L (98-107); Globulin 4.4 g/dL (2.4-3.5); Glucose 352 mg/dL (70-105); Potassium 5.4 mmol/L (3.5-5.1); Protein, Total 7.5 g/dL (6.0-8.3); Sodium 134 mmol/L (136-145)
[2020-05-15 06:07] LABS: Hemoglobin 7.6 g/dL (12.0-16.0); Mean Corpuscular HGB CONC 33.3 g/dL (32.0-36.0); Mean Corpuscular Hemoglobin 30.7 pg (27.0-31.0); Mean Platelet Volume 10.2 fL (7.4-10.4); Platelet Count 42 thou/uL (130-400); RBC Distribution Width 16.1 % (11.5-14.5); Red Blood Cell (RBC) Count 2.49 mill/uL (4.20-5.40)
[2020-05-15] MEDS ORDERED: HumaLOG 300 UNITS/3 ML VIAL SC SCH (08:00)
[2020-05-15 09:16] LABS: Band 10 % (5-11); Basophilic Stippling SLIGHT = 1-2 cells (100X) (None Seen); Lymphocytes 7 % (21-51); MDiff Complete? YES; Monocytes 16 % (0-10); Neutrophil 67 % (42-75); Platelet Morphology Comment Appears Decreased; Polychromasia SLIGHT = 2-3 cells (100X) (0-2/hpf)
[2020-05-15] MEDS: Cholecalciferol 1,000 UNITS (25 MCG) TAB PO SCH (09:27)
[2020-05-15] MEDS: Folic Acid 1 MG TAB PO SCH (09:28)
[2020-05-15] MEDS: Atenolol 50 MG TAB PO SCH (09:28)
[2020-05-15] MEDS: Ascorbic Acid 500 mg Chewable Tablet PO SCH (09:31)
[2020-05-15] MEDS: Insulin Glargine 40 UNITS in Pre-Filled Syringe 1 EACH SC SCH ×2 (09:32→20:58)
[2020-05-15] MEDS: HumaLOG 300 UNITS/3 ML VIAL SC SCH ×3 (09:33→17:27)
[2020-05-15 15:37] LABS: Cytoplasmic (C-ANCA) <1:20 titer (Neg:<1:20); Myeloperoxidase AutoAbs <9.0 U/mL (0.0-9.0); Perinuclear (P-ANCA) <1:20 titer (Neg:<1:20); Proteinase-3 AutoAbs Less than 3.5 U/mL (0.0-3.5)
[2020-05-15 17:41] LABS: ANA Symphony (Qualitative) Negative (Negative); ANA Symphony (Quantitative) 0.6 Ratio (< 0.7 Negative); dsDNA IgG Antibody 1.8 IU/mL (<10 Negative)
[2020-05-15 17:55] LABS: ANA Symphony (Qualitative) Negative (Negative); ANA Symphony (Quantitative) 0.6 Ratio (< 0.7 Negative); EliA Vaculitis New Method **** NEW METHOD ****; Mitochondrial Ab 1.8 U/mL (<4 Negative); dsDNA IgG Antibody 1.4 IU/mL (<10 Negative)
[2020-05-15] MEDS: Fluconazole 100 MG TAB PO SCH (20:58)
[2020-05-16] MEDS: Lactated Ringer's 1,000 ML IV SCH ×3 (00:48→21:02)
[2020-05-16 06:07] LABS: Hemoglobin 9.2 g/dL (12.0-16.0); Mean Corpuscular HGB CONC 33.6 g/dL (32.0-36.0); Mean Corpuscular Hemoglobin 30.8 pg (27.0-31.0); Mean Corpuscular Volume 91.9 fL (78.0-98.0); Mean Platelet Volume 10.1 fL (7.4-10.4); Platelet Count 44 thou/uL (130-400); RBC Distribution Width 16.4 % (11.5-14.5); Red Blood Cell (RBC) Count 2.97 mill/uL (4.20-5.40); White Blood Cell (WBC) Count 5.9 thou/uL (4.8-10.8)
[2020-05-16 06:28] LABS: Band 1 % (5-11); Eosinophils 2 % (0-10); Lymphocytes 11 % (21-51); MDiff Complete? YES; Monocytes 18 % (0-10); Neutrophil 68 % (42-75); Platelet Morphology Comment Appears Decreased
[2020-05-16 06:32] LABS: ALT (SGPT) 33 U/L (8-55); AST (SGOT) 39 U/L (5-34); Albumin 2.9 g/dL (3.5-5.0); Alkaline Phosphatase 245 U/L (40-110); Anion Gap 11 mmol/L (10-20); BUN (Urea Nitrogen) 24 mg/dL (9.8-20.1); Bilirubin, Total 3.4 mg/dL (0.2-1.2); Calc. Creatinine Clearance 46 mL/min (70-130); Calcium 8.6 mg/dL (7.8-10.44); Carbon Dioxide 19 mmol/L (22-29); Chloride 108 mmol/L (98-107); Globulin 4.2 g/dL (2.4-3.5); Glucose 85 mg/dL (70-105); Potassium 4.7 mmol/L (3.5-5.1); Protein, Total 7.1 g/dL (6.0-8.3); Sodium 133 mmol/L (136-145)
[2020-05-16] MEDS: HumaLOG 300 UNITS/3 ML VIAL SC SCH ×2 (08:15→12:15)
[2020-05-16] MEDS: Cholecalciferol 1,000 UNITS (25 MCG) TAB PO SCH (08:16)
[2020-05-16] MEDS: Atenolol 50 MG TAB PO SCH (08:16)
[2020-05-16] MEDS: Folic Acid 1 MG TAB PO SCH (08:16)
[2020-05-16] MEDS: Insulin Glargine 40 UNITS in Pre-Filled Syringe 1 EACH SC SCH ×2 (08:38→21:09)
[2020-05-16 14:14] LABS: Smooth Muscle Total ABS 33 Units (0-19)
[2020-05-16] MEDS ORDERED: Bacitracin 1 PK TOP PRN (14:41)
[2020-05-16 16:35] LABS: Bilirubin Negative (Negative); Blood, Urine 2+ (Negative); Clarity Turbid (Clear); Glucose, Urine (Dipstick) Greater than 1000 mg/dL (Negative); Ketone, Urine Negative (Negative); Leukocyte 500 Leu/uL (Negative); Nitrite Negative (Negative); Protein, Urine (Dipstick) 10 mg/dL (Neg-Trace); RBC/HPF 21-50 HPF (0-3); Specific Gravity, Urine 1.013 (1.002-1.036); Squamous Epithelial None Seen HPF (0-3); Urobilinogen Normal mg/dL (Less than 2); WBC/HPF Greater than 50 HPF (0-3)
[2020-05-16 16:36] LABS: Bacteria/HPF 1+ HPF (None Seen)
[2020-05-16] MEDS ORDERED: HumaLOG 300 UNITS/3 ML VIAL SC SCH (17:00)
[2020-05-17] MEDS: Lactated Ringer's 1,000 ML IV SCH ×3 (06:18→17:46)
[2020-05-17 06:57] LABS: Mean Corpuscular HGB CONC 33.4 g/dL (32.0-36.0); Mean Corpuscular Hemoglobin 30.9 pg (27.0-31.0); Mean Corpuscular Volume 92.3 fL (78.0-98.0); Mean Platelet Volume 9.4 fL (7.4-10.4); Platelet Count 47 thou/uL (130-400); RBC Distribution Width 16.2 % (11.5-14.5); Red Blood Cell (RBC) Count 2.93 mill/uL (4.20-5.40); White Blood Cell (WBC) Count 5.8 thou/uL (4.8-10.8)
[2020-05-17 07:00] LABS: ALT (SGPT) 29 U/L (8-55); AST (SGOT) 37 U/L (5-34); Albumin 2.7 g/dL (3.5-5.0); Alkaline Phosphatase 250 U/L (40-110); Anion Gap 11 mmol/L (10-20); BUN (Urea Nitrogen) 21 mg/dL (9.8-20.1); Bilirubin, Total 3.5 mg/dL (0.2-1.2); Calc. Creatinine Clearance 48 mL/min (70-130); Calcium 8.5 mg/dL (7.8-10.44); Carbon Dioxide 19 mmol/L (22-29); Chloride 106 mmol/L (98-107); Globulin 4.1 g/dL (2.4-3.5); Glucose 82 mg/dL (70-105); Potassium 4.4 mmol/L (3.5-5.1); Protein, Total 6.8 g/dL (6.0-8.3); Sodium 132 mmol/L (136-145)
[2020-05-17] MEDS: HumaLOG 300 UNITS/3 ML VIAL SC SCH ×2 (08:37→12:08)
[2020-05-17] MEDS: Folic Acid 1 MG TAB PO SCH (08:37)
[2020-05-17] MEDS: Insulin Glargine 40 UNITS in Pre-Filled Syringe 1 EACH SC SCH ×2 (08:37→21:25)
[2020-05-17] MEDS: Cholecalciferol 1,000 UNITS (25 MCG) TAB PO SCH (08:38)
[2020-05-17] MEDS: Atenolol 50 MG TAB PO SCH (08:39)
[2020-05-17 11:01] LABS: Band 5 % (5-11); Eosinophils 3 % (0-10); Lymphocytes 6 % (21-51); MDiff Complete? YES; Monocytes 19 % (0-10); Neutrophil 67 % (42-75); Platelet Morphology Comment Appears Decreased; RBC Morphology Normal
[2020-05-17] MEDS ORDERED: Magnevist 469MG/ML 20 ML VIAL ONE ×4 (14:16)
[2020-05-17] MEDS ORDERED: GoLYTELY 4,000 ml Bottle PO SCH (17:00)
[2020-05-18] MEDS: Dextrose 5 %-0.45 % NaCl 1,000 ML IV SCH ×2 (06:07→21:10)
[2020-05-18] MEDS: Lactated Ringer's 1,000 ML IV SCH ×3 (06:08→21:45)
[2020-05-18 06:28] LABS: Hemoglobin 8.4 g/dL (12.0-16.0); Mean Corpuscular HGB CONC 32.8 g/dL (32.0-36.0); Mean Corpuscular Hemoglobin 30.8 pg (27.0-31.0); Mean Corpuscular Volume 93.8 fL (78.0-98.0); Mean Platelet Volume 9.1 fL (7.4-10.4); Platelet Count 53 thou/uL (130-400); Red Blood Cell (RBC) Count 2.72 mill/uL (4.20-5.40); White Blood Cell (WBC) Count 5.7 thou/uL (4.8-10.8)
[2020-05-18 06:42] LABS: ALT (SGPT) 27 U/L (8-55); AST (SGOT) 33 U/L (5-34); Albumin 2.7 g/dL (3.5-5.0); Alkaline Phosphatase 236 U/L (40-110); Anion Gap 12 mmol/L (10-20); BUN (Urea Nitrogen) 17 mg/dL (9.8-20.1); Calc. Creatinine Clearance 51 mL/min (70-130); Calcium 8.5 mg/dL (7.8-10.44); Carbon Dioxide 20 mmol/L (22-29); Chloride 105 mmol/L (98-107); Glucose 65 mg/dL (70-105); Potassium 4.2 mmol/L (3.5-5.1); Protein, Total 6.7 g/dL (6.0-8.3); Sodium 133 mmol/L (136-145)
[2020-05-18 07:00] LABS: Band 14 % (5-11); Eosinophils 2 % (0-10); Lymphocytes 3 % (21-51); MDiff Complete? YES; Monocytes 17 % (0-10); Neutrophil 64 % (42-75); Platelet Morphology Comment Appears Decreased; Polychromasia SLIGHT = 2-3 cells (100X) (0-2/hpf)
[2020-05-18] MEDS ORDERED: PROPOFOL 200 MG/20 ML VIAL ONE (10:36)
[2020-05-18] MEDS ORDERED: Lidocaine 1% PF 5 ML VIAL ONE (10:36)
[2020-05-18] MEDS: Atenolol 50 MG TAB PO SCH (10:42)
[2020-05-18] MEDS ORDERED: Promethazine HCl 25 MG/ML VIAL SLOW IVP PRN (13:27)
[2020-05-18] MEDS ORDERED: Promethazine HCl 25 MG/ML VIAL IM PRN (13:27)
[2020-05-18] MEDS ORDERED: Ondansetron HCl/PF 4 MG/2 ML Vial IVP PRN (13:27)
[2020-05-18 15:13] LABS: Alpha-1-Antitrypsin 133 mg/dL (101-187)
[2020-05-18] MEDS: Folic Acid 1 MG TAB PO SCH (16:21)
[2020-05-18] MEDS: Cholecalciferol 1,000 UNITS (25 MCG) TAB PO SCH (16:21)
[2020-05-18] MEDS: Insulin Glargine 40 UNITS in Pre-Filled Syringe 1 EACH SC SCH ×2 (16:21→20:48)
[2020-05-19 06:01] LABS: Hemoglobin 8.5 g/dL (12.0-16.0); Mean Corpuscular HGB CONC 32.9 g/dL (32.0-36.0); Mean Corpuscular Hemoglobin 30.4 pg (27.0-31.0); Mean Corpuscular Volume 92.2 fL (78.0-98.0); Mean Platelet Volume 8.8 fL (7.4-10.4); Platelet Count 64 thou/uL (130-400); RBC Distribution Width 15.7 % (11.5-14.5); Red Blood Cell (RBC) Count 2.79 mill/uL (4.20-5.40)
[2020-05-19 06:14] LABS: ALT (SGPT) 22 U/L (8-55); AST (SGOT) 28 U/L (5-34); Albumin 2.6 g/dL (3.5-5.0); Alkaline Phosphatase 227 U/L (40-110); Anion Gap 11 mmol/L (10-20); BUN (Urea Nitrogen) 15 mg/dL (9.8-20.1); Bilirubin, Total 3.2 mg/dL (0.2-1.2); Calc. Creatinine Clearance 46 mL/min (70-130); Carbon Dioxide 19 mmol/L (22-29); Chloride 106 mmol/L (98-107); Glucose 135 mg/dL (70-105); Potassium 3.9 mmol/L (3.5-5.1); Protein, Total 6.6 g/dL (6.0-8.3); Sodium 132 mmol/L (136-145)
[2020-05-19 06:25] LABS: Band 11 % (5-11); Eosinophils 3 % (0-10); Lymphocytes 4 % (21-51); MDiff Complete? YES; Monocytes 12 % (0-10); Neutrophil 70 % (42-75); Platelet Morphology Comment Appears Decreased
[2020-05-19] MEDS: Lactated Ringer's 1,000 ML IV SCH ×2 (06:39→15:19)
[2020-05-19] MEDS: Cholecalciferol 1,000 UNITS (25 MCG) TAB PO SCH (09:28)
[2020-05-19] MEDS: Folic Acid 1 MG TAB PO SCH (09:30)
[2020-05-19] MEDS: Atenolol 50 MG TAB PO SCH (09:31)
[2020-05-19] MEDS: HumaLOG 300 UNITS/3 ML VIAL SC SCH ×2 (09:32→15:19)
[2020-05-19] MEDS: Insulin Glargine 40 UNITS in Pre-Filled Syringe 1 EACH SC SCH ×2 (15:18→19:49)
[2020-05-20 06:06] LABS: ALT (SGPT) 21 U/L (8-55); AST (SGOT) 28 U/L (5-34); Albumin 2.6 g/dL (3.5-5.0); Alkaline Phosphatase 219 U/L (40-110); Anion Gap 11 mmol/L (10-20); BUN (Urea Nitrogen) 14 mg/dL (9.8-20.1); Calc. Creatinine Clearance 47 mL/min (70-130); Calcium 8.1 mg/dL (7.8-10.44); Carbon Dioxide 20 mmol/L (22-29); Chloride 109 mmol/L (98-107); Glucose 69 mg/dL (70-105); Potassium 3.8 mmol/L (3.5-5.1); Protein, Total 6.6 g/dL (6.0-8.3); Sodium 136 mmol/L (136-145)
[2020-05-20 06:17] LABS: Eosinophils 2 % (0-10); Hemoglobin 8.4 g/dL (12.0-16.0); Lymphocytes 12 % (21-51); MDiff Complete? YES; Mean Corpuscular HGB CONC 33.3 g/dL (32.0-36.0); Mean Corpuscular Hemoglobin 30.7 pg (27.0-31.0); Mean Corpuscular Volume 92.2 fL (78.0-98.0); Mean Platelet Volume 7.8 fL (7.4-10.4); Monocytes 7 % (0-10); Neutrophil 79 % (42-75); Platelet Count 68 thou/uL (130-400); Platelet Morphology Comment Appears Decreased; RBC Distribution Width 15.4 % (11.5-14.5); Red Blood Cell (RBC) Count 2.74 mill/uL (4.20-5.40); White Blood Cell (WBC) Count 4.1 thou/uL (4.8-10.8)
[2020-05-20] MEDS: Cholecalciferol 1,000 UNITS (25 MCG) TAB PO SCH (08:58)
[2020-05-20] MEDS: Atenolol 50 MG TAB PO SCH (08:58)
[2020-05-20] MEDS: Ferrous Sulfate 325 MG TAB PO SCH (08:58)
[2020-05-20] MEDS: Folic Acid 1 MG TAB PO SCH (08:59)
[2020-05-20] MEDS ORDERED: Spironolactone 100 MG TAB PO SCH (11:30)
[2020-05-20] MEDS: HumaLOG 300 UNITS/3 ML VIAL SC PRN (12:03)
[2020-05-20] MEDS ORDERED: Boostrix 0.5 ML (Tdap) VIAL IM ONE (18:00)
[2020-05-20] MEDS: Amoxicillin/Potassium Clav 875 MG TAB PO SCH (21:23)
[2020-05-20] MEDS: Insulin Glargine 40 UNITS in Pre-Filled Syringe 1 EACH SC SCH (21:23)
[2020-05-21 05:27] LABS: ALT (SGPT) 23 U/L (8-55); AST (SGOT) 29 U/L (5-34); Albumin 2.8 g/dL (3.5-5.0); Alkaline Phosphatase 241 U/L (40-110); Anion Gap 12 mmol/L (10-20); BUN (Urea Nitrogen) 12 mg/dL (9.8-20.1); Bilirubin, Total 3.1 mg/dL (0.2-1.2); Calc. Creatinine Clearance 47 mL/min (70-130); Calcium 8.4 mg/dL (7.8-10.44); Carbon Dioxide 21 mmol/L (22-29); Chloride 107 mmol/L (98-107); Globulin 4.5 g/dL (2.4-3.5); Glucose 61 mg/dL (70-105); Potassium 3.6 mmol/L (3.5-5.1); Protein, Total 7.3 g/dL (6.0-8.3); Sodium 136 mmol/L (136-145)
[2020-05-21 05:30] LABS: Eosinophils 5 % (0-10); Lymphocytes 3 % (21-51); MDiff Complete? YES; Mean Corpuscular HGB CONC 33.5 g/dL (32.0-36.0); Mean Corpuscular Hemoglobin 30.9 pg (27.0-31.0); Mean Corpuscular Volume 92.4 fL (78.0-98.0); Mean Platelet Volume 7.7 fL (7.4-10.4); Monocytes 14 % (0-10); Neutrophil 78 % (42-75); Platelet Count 86 thou/uL (130-400); Platelet Morphology Comment Appears Decreased; RBC Distribution Width 15.4 % (11.5-14.5); White Blood Cell (WBC) Count 3.9 thou/uL (4.8-10.8)
[2020-05-21] MEDS: Amoxicillin/Potassium Clav 875 MG TAB PO SCH ×2 (08:26→21:32)
[2020-05-21] MEDS: Cholecalciferol 1,000 UNITS (25 MCG) TAB PO SCH (08:26)
[2020-05-21] MEDS: Ferrous Sulfate 325 MG TAB PO SCH (08:27)
[2020-05-21] MEDS: Folic Acid 1 MG TAB PO SCH (08:27)
[2020-05-21] MEDS: Atenolol 50 MG TAB PO SCH (08:27)
[2020-05-21] MEDS ORDERED: Spironolactone 100 MG TAB PO SCH (09:00)
[2020-05-21] MEDS: HumaLOG 300 UNITS/3 ML VIAL SC PRN ×2 (15:56→21:33)
[2020-05-21] MEDS: Ascorbic Acid 500 mg Chewable Tablet PO SCH (21:32)
[2020-05-21] MEDS: Insulin Glargine 40 UNITS in Pre-Filled Syringe 1 EACH SC SCH (21:32)
[2020-05-22 05:30] LABS: Hemoglobin 8.4 g/dL (12.0-16.0); Mean Corpuscular HGB CONC 33.5 g/dL (32.0-36.0); Mean Corpuscular Volume 92.5 fL (78.0-98.0); Mean Platelet Volume 7.4 fL (7.4-10.4); Platelet Count 89 thou/uL (130-400); RBC Distribution Width 15.2 % (11.5-14.5); White Blood Cell (WBC) Count 3.9 thou/uL (4.8-10.8)
[2020-05-22 05:49] LABS: Band 2 % (5-11); Eosinophils 4 % (0-10); Hypochromia SLIGHT = 6-15 cells (100X) (0-5/hpf); Lymphocytes 10 % (21-51); MDiff Complete? YES; Monocytes 4 % (0-10); Neutrophil 80 % (42-75)
[2020-05-22 05:51] LABS: ALT (SGPT) 21 U/L (8-55); AST (SGOT) 26 U/L (5-34); Albumin 2.6 g/dL (3.5-5.0); Alkaline Phosphatase 217 U/L (40-110); Anion Gap 11 mmol/L (10-20); BUN (Urea Nitrogen) 13 mg/dL (9.8-20.1); Bilirubin, Total 2.4 mg/dL (0.2-1.2); Calc. Creatinine Clearance 49 mL/min (70-130); Calcium 8.1 mg/dL (7.8-10.44); Carbon Dioxide 19 mmol/L (22-29); Chloride 109 mmol/L (98-107); Globulin 4.2 g/dL (2.4-3.5); Potassium 3.6 mmol/L (3.5-5.1); Protein, Total 6.8 g/dL (6.0-8.3); Sodium 135 mmol/L (136-145)
[2020-05-22 05:58] LABS: Glucose 52 mg/dL (70-105)
[2020-05-22] MEDS ORDERED: Insulin Glargine 20 UNITS in Pre-Filled Syringe 1 EACH SC SCH (08:36)
[2020-05-22] MEDS: Cholecalciferol 1,000 UNITS (25 MCG) TAB PO SCH (09:36)
[2020-05-22] MEDS: Atenolol 50 MG TAB PO SCH (09:37)
[2020-05-22] MEDS: Amoxicillin/Potassium Clav 875 MG TAB PO SCH ×2 (09:37→20:48)
[2020-05-22] MEDS: Folic Acid 1 MG TAB PO SCH (09:37)
[2020-05-22] MEDS: Ascorbic Acid 500 mg Chewable Tablet PO SCH ×2 (09:37→20:48)
[2020-05-22] MEDS: Ferrous Sulfate 325 MG TAB PO SCH (09:37)
[2020-05-22] MEDS: Spironolactone 100 MG TAB PO SCH (09:38)
[2020-05-22 11:58] LABS: Hemoglobin A1c 7.3 % (4.0-6.0)
[2020-05-22] MEDS: Pregabalin 25 MG CAP PO PRN ×2 (12:17→23:32)
[2020-05-22] MEDS: HumaLOG 300 UNITS/3 ML VIAL SC PRN (18:26)
[2020-05-23] MEDS ORDERED: D5 1/2 NS 500 ML IV SCH (05:45)
[2020-05-23 06:11] LABS: Hemoglobin 8.5 g/dL (12.0-16.0); Mean Corpuscular HGB CONC 32.7 g/dL (32.0-36.0); Mean Corpuscular Hemoglobin 30.2 pg (27.0-31.0); Mean Corpuscular Volume 92.5 fL (78.0-98.0); Mean Platelet Volume 7.1 fL (7.4-10.4); Platelet Count 92 thou/uL (130-400); RBC Distribution Width 15.3 % (11.5-14.5); Red Blood Cell (RBC) Count 2.79 mill/uL (4.20-5.40); White Blood Cell (WBC) Count 3.2 thou/uL (4.8-10.8)
[2020-05-23 06:23] LABS: ALT (SGPT) 17 U/L (8-55); AST (SGOT) 25 U/L (5-34); Albumin 2.5 g/dL (3.5-5.0); Alkaline Phosphatase 209 U/L (40-110); Anion Gap 10 mmol/L (10-20); BUN (Urea Nitrogen) 11 mg/dL (9.8-20.1); Bilirubin, Total 2.2 mg/dL (0.2-1.2); Calc. Creatinine Clearance 51 mL/min (70-130); Carbon Dioxide 19 mmol/L (22-29); Chloride 110 mmol/L (98-107); Globulin 4.1 g/dL (2.4-3.5); Glucose 69 mg/dL (70-105); Potassium 3.7 mmol/L (3.5-5.1); Protein, Total 6.6 g/dL (6.0-8.3); Sodium 135 mmol/L (136-145)
[2020-05-23 06:44] LABS: Band 2 % (5-11); Eosinophils 5 % (0-10); Lymphocytes 7 % (21-51); MDiff Complete? YES; Monocytes 25 % (0-10); Neutrophil 60 % (42-75); Platelet Morphology Comment Appears Decreased
[2020-05-23] MEDS ORDERED: Insulin Glargine 10 UNITS in Pre-Filled Syringe 1 EACH SC SCH (08:36)
[2020-05-23] MEDS: Cholecalciferol 1,000 UNITS (25 MCG) TAB PO SCH (09:02)
[2020-05-23] MEDS: Amoxicillin/Potassium Clav 875 MG TAB PO SCH ×2 (09:02→20:24)
[2020-05-23] MEDS: Ferrous Sulfate 325 MG TAB PO SCH (09:03)
[2020-05-23] MEDS: Folic Acid 1 MG TAB PO SCH (09:03)
[2020-05-23] MEDS: Atenolol 50 MG TAB PO SCH (09:03)
[2020-05-23] MEDS: Ascorbic Acid 500 mg Chewable Tablet PO SCH ×2 (09:03→20:24)
[2020-05-23] MEDS: Spironolactone 100 MG TAB PO SCH (09:04)
[2020-05-23] MEDS: Insulin Glargine 10 UNITS in Pre-Filled Syringe 1 EACH SC SCH (10:56)
[2020-05-23] MEDS: Pregabalin 25 MG CAP PO PRN (10:58)
[2020-05-23] MEDS: HumaLOG 300 UNITS/3 ML VIAL SC PRN ×2 (16:41→20:57)
[2020-05-23] MEDS: Simethicone Chewable 80 MG TAB PO PRN (16:44)
[2020-05-24] MEDS: Pregabalin 25 MG CAP PO PRN
[2020-05-24] MEDS: HumaLOG 300 UNITS/3 ML VIAL SC PRN (05:15)
[2020-05-24 05:23] LABS: INR-International Normal Ratio 1.4; PTT 42.8 sec (22.9-36.1); Prothrombin Time 17.5 sec (12.0-14.7)
[2020-05-24 05:24] LABS: Hemoglobin 8.7 g/dL (12.0-16.0); Mean Corpuscular HGB CONC 33.2 g/dL (32.0-36.0); Mean Corpuscular Hemoglobin 30.6 pg (27.0-31.0); Mean Corpuscular Volume 92.3 fL (78.0-98.0); Mean Platelet Volume 8.3 fL (7.4-10.4); Platelet Count 99 thou/uL (130-400); RBC Distribution Width 15.2 % (11.5-14.5); Red Blood Cell (RBC) Count 2.83 mill/uL (4.20-5.40); White Blood Cell (WBC) Count 3.3 thou/uL (4.8-10.8)
[2020-05-24 05:40] LABS: Band 8 % (5-11); Eosinophils 2 % (0-10); Hypochromia SLIGHT = 6-15 cells (100X) (0-5/hpf); Lymphocytes 6 % (21-51); MDiff Complete? YES; Monocytes 12 % (0-10); Neutrophil 72 % (42-75); Platelet Morphology Comment Appears Decreased
[2020-05-24 05:41] LABS: ALT (SGPT) 17 U/L (8-55); AST (SGOT) 35 U/L (5-34); Albumin 2.4 g/dL (3.5-5.0); Alkaline Phosphatase 202 U/L (40-110); Anion Gap 13 mmol/L (10-20); BUN (Urea Nitrogen) 11 mg/dL (9.8-20.1); Bilirubin, Total 1.9 mg/dL (0.2-1.2); Calc. Creatinine Clearance 50 mL/min (70-130); Carbon Dioxide 16 mmol/L (22-29); Chloride 109 mmol/L (98-107); Globulin 4.5 g/dL (2.4-3.5); Glucose 183 mg/dL (70-105); Potassium 4.5 mmol/L (3.5-5.1); Protein, Total 6.9 g/dL (6.0-8.3); Sodium 133 mmol/L (136-145)
[2020-05-24] MEDS: Amoxicillin/Potassium Clav 875 MG TAB PO SCH ×2 (08:55→22:22)
[2020-05-24] MEDS: Atenolol 50 MG TAB PO SCH (08:55)
[2020-05-24] MEDS: Ferrous Sulfate 325 MG TAB PO SCH (08:55)
[2020-05-24] MEDS: Spironolactone 100 MG TAB PO SCH (08:56)
[2020-05-24] MEDS: Folic Acid 1 MG TAB PO SCH (08:56)
[2020-05-24] MEDS: Ascorbic Acid 500 mg Chewable Tablet PO SCH ×2 (08:57→22:22)
[2020-05-24] MEDS: Cholecalciferol 1,000 UNITS (25 MCG) TAB PO SCH (08:57)
[2020-05-24] MEDS ORDERED: PROPOFOL 200 MG/20 ML VIAL ONE (09:49)
[2020-05-24] MEDS ORDERED: Ondansetron PF 4 MG/2 ML Vial ONE (09:49)
[2020-05-24] MEDS ORDERED: PHENYLEPHRINE-NS 100 MCG/ML 10 ML SYRINGE ONE (09:49)
[2020-05-24] MEDS ORDERED: Dexamethasone 20 MG/5 ML VIAL ONE (09:49)
[2020-05-24] MEDS ORDERED: Sodium Bicarbonate 2.5 MEQ/5 ML VIAL ONE (10:22)
[2020-05-24] MEDS ORDERED: Midazolam HCl 2 mg/2 ml Vial ONE ×2 (10:22→19:14)
[2020-05-24] MEDS ORDERED: Fentanyl 100 MCG/2 ML VIAL ONE ×2 (10:22→19:14)
[2020-05-24] MEDS ORDERED: Lidocaine 1% PF 5 ML VIAL ONE (10:22)
[2020-05-24] MEDS ORDERED: Sodium Chloride 0.9% 10 ML ONE (11:09)
[2020-05-24] MEDS ORDERED: Acetaminophen 500 MG TAB PO PRN (12:04)
[2020-05-24] MEDS ORDERED: Sodium Chloride 0.9% 1,000 ML IV SCH (12:15)
[2020-05-24] MEDS ORDERED: Morphine 2 MG/ML VIAL SLOW IVP SCH (15:15)
[2020-05-24] MEDS: Lidocaine 2% Viscous Solution 20 ML, Aluminum & Magnesium Hydroxide 30 ML, Donnatal Eli... SSW SCH ×2 (15:41→15:43)
[2020-05-24] MEDS ORDERED: Bupivacaine PF 0.5% 30 ML VIAL ONE (18:30)
[2020-05-24] MEDS ORDERED: Bacitracin Zinc Ointment 30 gm TUBE ONE (18:31)
[2020-05-24] MEDS ORDERED: Sodium Chloride 0.9% 40 ML ONE (18:31)
[2020-05-24] MEDS ORDERED: Thrombin 5000 UNITS/5 ML VIAL ONE (18:31)
[2020-05-24] MEDS ORDERED: Propofol 500 MG/50 ML VIAL ONE (19:50)
[2020-05-24] MEDS ORDERED: Morphine 2 MG/ML VIAL SLOW IVP PRN (21:49)
[2020-05-24] MEDS: Clindamycin/D5W 600 MG in Premix Bag 1 BAG IVPB SCH (22:21)
[2020-05-25] MEDS: Simethicone Chewable 80 MG TAB PO PRN (01:03)
[2020-05-25] MEDS: HYDROcodone/Acetaminophen 7.5/325 mg Tablet PO PRN ×3 (01:03→14:57)
[2020-05-25 05:17] LABS: #Lymphocytes 0.3 thou/uL (1.20-3.40); #Monocytes 0.1 thou/uL (0.11-0.59); #Neutrophils 1.9 thou/uL (1.40-6.50); %Eosinophils 0.2 % (0.0-10.0); %Lymphocytes 13.9 % (21.0-51.0); %Monocytes 2.2 % (0.0-10.0); %Neutrophils 83.8 % (42.0-75.0); Hemoglobin 9.1 g/dL (12.0-16.0); Mean Corpuscular HGB CONC 33.9 g/dL (32.0-36.0); Mean Corpuscular Hemoglobin 31.5 pg (27.0-31.0); Mean Platelet Volume 7.4 fL (7.4-10.4); Platelet Count 86 thou/uL (130-400); RBC Distribution Width 14.9 % (11.5-14.5); White Blood Cell (WBC) Count 2.3 thou/uL (4.8-10.8)
[2020-05-25 05:32] LABS: ALT (SGPT) 17 U/L (8-55); AST (SGOT) 26 U/L (5-34); Albumin 2.7 g/dL (3.5-5.0); Alkaline Phosphatase 229 U/L (40-110); Anion Gap 13 mmol/L (10-20); BUN (Urea Nitrogen) 17 mg/dL (9.8-20.1); Bilirubin, Total 2.3 mg/dL (0.2-1.2); Calc. Creatinine Clearance 41 mL/min (70-130); Calcium 8.2 mg/dL (7.8-10.44); Carbon Dioxide 18 mmol/L (22-29); Chloride 109 mmol/L (98-107); Globulin 4.5 g/dL (2.4-3.5); Glucose 390 mg/dL (70-105); Potassium 5.1 mmol/L (3.5-5.1); Protein, Total 7.2 g/dL (6.0-8.3); Sodium 135 mmol/L (136-145)
[2020-05-25] MEDS: Clindamycin/D5W 600 MG in Premix Bag 1 BAG IVPB SCH ×2 (05:47→14:51)
[2020-05-25] MEDS: HumaLOG 300 UNITS/3 ML VIAL SC PRN ×4 (05:47→21:15)
[2020-05-25] MEDS: Atenolol 50 MG TAB PO SCH (09:10)
[2020-05-25] MEDS: Cholecalciferol 1,000 UNITS (25 MCG) TAB PO SCH (09:10)
[2020-05-25] MEDS: Ferrous Sulfate 325 MG TAB PO SCH (09:10)
[2020-05-25] MEDS: Amoxicillin/Potassium Clav 875 MG TAB PO SCH ×2 (09:10→21:13)
[2020-05-25] MEDS: Ascorbic Acid 500 mg Chewable Tablet PO SCH ×2 (09:10→21:13)
[2020-05-25] MEDS: Folic Acid 1 MG TAB PO SCH (09:11)
[2020-05-25] MEDS: Insulin Glargine 10 UNITS in Pre-Filled Syringe 1 EACH SC SCH (09:11)
[2020-05-25] MEDS: Spironolactone 100 MG TAB PO SCH (09:11)
[2020-05-25] MEDS ORDERED: Lidocaine 2% Viscous Solution 10 ML, Aluminum & Magnesium Hydroxide 30 ML SSW SCH (11:30)
[2020-05-25] MEDS: Lactated Ringer's 1,000 ML IV SCH (18:24)
[2020-05-25] MEDS: Clindamycin 150 MG CAP PO SCH (21:13)
[2020-05-26] MEDS: HYDROcodone/Acetaminophen 7.5/325 mg Tablet PO PRN ×3 (04:05→18:00)
[2020-05-26] MEDS: Lactated Ringer's 1,000 ML IV SCH (04:07)
[2020-05-26] MEDS ORDERED: hydrOXYzine 25 MG TAB PO PRN (04:54)
[2020-05-26] MEDS: Clindamycin 150 MG CAP PO SCH ×2 (05:50→14:23)
[2020-05-26] MEDS: HumaLOG 300 UNITS/3 ML VIAL SC PRN ×3 (05:53→15:56)
[2020-05-26 06:14] LABS: #Lymphocytes 0.3 thou/uL (1.20-3.40); #Monocytes 0.5 thou/uL (0.11-0.59); #Neutrophils 4.1 thou/uL (1.40-6.50); %Eosinophils 0.2 % (0.0-10.0); %Lymphocytes 6.5 % (21.0-51.0); %Neutrophils 82.4 % (42.0-75.0); Hemoglobin 9.1 g/dL (12.0-16.0); Mean Corpuscular HGB CONC 33.9 g/dL (32.0-36.0); Mean Corpuscular Hemoglobin 31.2 pg (27.0-31.0); Mean Platelet Volume 7.4 fL (7.4-10.4); Platelet Count 91 thou/uL (130-400); RBC Distribution Width 14.9 % (11.5-14.5); Red Blood Cell (RBC) Count 2.91 mill/uL (4.20-5.40); White Blood Cell (WBC) Count 4.9 thou/uL (4.8-10.8)
[2020-05-26 06:33] LABS: ALT (SGPT) 15 U/L (8-55); AST (SGOT) 19 U/L (5-34); Albumin 2.6 g/dL (3.5-5.0); Alkaline Phosphatase 211 U/L (40-110); Anion Gap 13 mmol/L (10-20); BUN (Urea Nitrogen) 20 mg/dL (9.8-20.1); Bilirubin, Total 1.9 mg/dL (0.2-1.2); Calc. Creatinine Clearance 49 mL/min (70-130); Calcium 8.2 mg/dL (7.8-10.44); Carbon Dioxide 19 mmol/L (22-29); Chloride 108 mmol/L (98-107); Globulin 4.5 g/dL (2.4-3.5); Glucose 212 mg/dL (70-105); Potassium 4.3 mmol/L (3.5-5.1); Protein, Total 7.1 g/dL (6.0-8.3); Sodium 136 mmol/L (136-145)
[2020-05-26] MEDS ORDERED: Insulin Glargine 20 UNITS in Pre-Filled Syringe 1 EACH SC SCH (09:00)
[2020-05-26] MEDS: Atenolol 50 MG TAB PO SCH (09:04)
[2020-05-26] MEDS: Amoxicillin/Potassium Clav 875 MG TAB PO SCH (09:04)
[2020-05-26] MEDS: Ferrous Sulfate 325 MG TAB PO SCH (09:05)
[2020-05-26] MEDS: Folic Acid 1 MG TAB PO SCH (09:05)
[2020-05-26] MEDS: Spironolactone 100 MG TAB PO SCH (09:05)
[2020-05-26] MEDS: Ascorbic Acid 500 mg Chewable Tablet PO SCH (09:05)
[2020-05-26] MEDS: Cholecalciferol 1,000 UNITS (25 MCG) TAB PO SCH (09:05)
[2020-05-26] MEDS ORDERED: Dicyclomine 10 MG CAP PO PRN (11:14)
[2020-05-26] MEDS ORDERED: Lidocaine 2% Viscous Solution 10 ML, Aluminum & Magnesium Hydroxide 30 ML SSW SCH (14:45)
[2020-05-26 18:04] VITALS: BP 114/74; TEMP 97.9
== END 2020-05-26 19:25 | DRG 988 ==
LOC: ERS 16:09 → SURG A 21:43 → OBSVTOIN 23:53
PROVIDERS: ADMIT Student in an Organized Health Care Education/Training Program; ATTEND Student in an Organized Health Care Education/Training Program
PROC: 0T9B70Z Drainage of Bladder with Drainage Device, Via Natural or Artificial Opening (ICD-10-PCS; 2020-05-12)
PROC: 30233N1 Transfusion of Nonautologous Red Blood Cells into Peripheral Vein, Percutaneous Approach (ICD-10-PCS; 2020-05-15)
PROC: 0DB98ZX Excision of Duodenum, Via Natural or Artificial Opening Endoscopic, Diagnostic (ICD-10-PCS; 2020-05-18)
PROC: 0DBM8ZZ Excision of Descending Colon, Via Natural or Artificial Opening Endoscopic (ICD-10-PCS; 2020-05-18)
PROC: 0FB23ZX Excision of Left Lobe Liver, Percutaneous Approach, Diagnostic (ICD-10-PCS; principal; 2020-05-24)
PROC: 0HBQXZX Excision of Finger Nail, External Approach, Diagnostic (ICD-10-PCS; 2020-05-24)
PROC: 0J9J0ZZ Drainage of Right Hand Subcutaneous Tissue and Fascia, Open Approach (ICD-10-PCS; 2020-05-24)
DX: K74.60 Unspecified cirrhosis of liver (principal); N17.9 Acute kidney failure, unspecified; K76.6 Portal hypertension; L02.511 Cutaneous abscess of right hand; E87.1 Hypo-osmolality and hyponatremia; B37.49 Other urogenital candidiasis; R18.8 Other ascites; G93.40 Encephalopathy, unspecified; Z20.822 Contact with and (suspected) exposure to COVID-19; Z23 Encounter for immunization; K31.89 Other diseases of stomach and duodenum; K31.7 Polyp of stomach and duodenum; K64.9 Unspecified hemorrhoids; K63.5 Polyp of colon; D18.01 Hemangioma of skin and subcutaneous tissue; H40.9 Unspecified glaucoma; E11.36 Type 2 diabetes mellitus with diabetic cataract; H26.9 Unspecified cataract; F41.9 Anxiety disorder, unspecified; D69.59 Other secondary thrombocytopenia; E11.649 Type 2 diabetes mellitus with hypoglycemia without coma; K75.4 Autoimmune hepatitis; R33.9 Retention of urine, unspecified; E11.40 Type 2 diabetes mellitus with diabetic neuropathy, unspecified; Z79.52 Long term (current) use of systemic steroids; Z90.710 Acquired absence of both cervix and uterus; Z79.899 Other long term (current) drug therapy; Z79.4 Long term (current) use of insulin
CPT/HCPCS: 36415; 36416; 36430; 47000; 51701; 70450; 70553; 72156; 72157; 72158; 76705; 76770; 76942; 80053; 80074; 81001; 81003; 81015; 82103; 82104; 82105; 82140; 82274; 82550; 82570; 82607; 82728; 82746; 83036; 83516; 83520; 83540; 83550; 84156; 84300; 84425; 84443; 84484; 85025; 85610; 85652; 85730; 86038; 86140; 86160; 86225; 86256; 86850; 86900; 86901; 87070; 87077; 87086; 87186; 87205; 87635; 88305; 88307; 88313; 90715; 93005; 95712; 95819; 95957; 96365; A9579; G0378; J0696; J1100; J1815; J2250; J2270; J2405; J2704; J3010; J3490; P9016; P9047; S0020; U0003; U0005

== ENCOUNTER 2020-07-20 14:20 | Inpatient (IN) | payer MEDICARE, MEDICAID ==
[2020-07-20 15:11] LABS: #Eosinphils 0.2 thou/uL (0.0-0.7); #Lymphocytes 0.5 thou/uL (1.20-3.40); #Neutrophils 5.1 thou/uL (1.40-6.50); %Basophils 0.3 % (0.0-1.0); %Eosinophils 2.9 % (0.0-10.0); %Lymphocytes 7.3 % (21.0-51.0); %Monocytes 14.4 % (0.0-10.0); Mean Corpuscular HGB CONC 32.8 g/dL (32.0-36.0); Mean Corpuscular Hemoglobin 30.3 pg (27.0-31.0); Mean Corpuscular Volume 92.5 fL (78.0-98.0); Mean Platelet Volume 9.1 fL (7.4-10.4); Platelet Count 71 thou/uL (130-400); RBC Distribution Width 12.6 % (11.5-14.5); Red Blood Cell (RBC) Count 3.61 mill/uL (4.20-5.40); White Blood Cell (WBC) Count 6.8 thou/uL (4.8-10.8)
[2020-07-20 15:17] LABS: INR-International Normal Ratio 1.4; Prothrombin Time 17.1 sec (12.0-14.7)
[2020-07-20 15:26] LABS: ALT (SGPT) 26 U/L (8-55); AST (SGOT) 42 U/L (5-34); Albumin 2.7 g/dL (3.5-5.0); Alkaline Phosphatase 241 U/L (40-110); Anion Gap 14 mmol/L (10-20); BUN (Urea Nitrogen) 49 mg/dL (9.8-20.1); Bilirubin, Total 2.2 mg/dL (0.2-1.2); Calc. Creatinine Clearance 0 mL/min (70-130); Calcium 8.8 mg/dL (7.8-10.44); Carbon Dioxide 18 mmol/L (22-29); Chloride 107 mmol/L (98-107); Globulin 6.3 g/dL (2.4-3.5); Glucose 350 mg/dL (70-105); Potassium 5.9 mmol/L (3.5-5.1); Sodium 133 mmol/L (136-145)
[2020-07-20 15:27] LABS: Bilirubin Negative (Negative); Blood, Urine 3+ (Negative); Clarity Turbid (Clear); Glucose, Urine (Dipstick) 50 mg/dL (Negative); Ketone, Urine Negative (Negative); Leukocyte 500 Leu/uL (Negative); Nitrite Negative (Negative); Protein, Urine (Dipstick) 20 mg/dL (Neg-Trace); RBC/HPF Greater than 50 HPF (0-3); Specific Gravity, Urine 1.014 (1.002-1.036); Squamous Epithelial 0-3 HPF (0-3); Urobilinogen Normal mg/dL (Less than 2); WBC/HPF Greater than 50 HPF (0-3)
[2020-07-20 15:36] LABS: Bacteria/HPF Rare-Few HPF (None Seen); Yeast-Budding 1+ HPF (None Seen); Yeast-Hyphae 2+ HPF (None Seen)
[2020-07-20] MEDS ORDERED: cefTRIAXone\\ROCEPHIN 1 GM VIAL ONE (16:20)
[2020-07-20] MEDS ORDERED: Sodium Bicarbonate 2.5 MEQ/5 ML VIAL ONE (16:31)
[2020-07-20] MEDS ORDERED: Insulin Regular 300 UNITS/3 ML VIAL ONE (16:31)
[2020-07-20] MEDS ORDERED: Calcium Chloride 1 GM/10 ML Abboject SYRINGE ONE (16:32)
[2020-07-20] MEDS ORDERED: Sodium Bicarb 50 MEQ/50 ML Abboject 8.4% SYRINGE ONE (16:32)
[2020-07-20] MEDS ORDERED: Calcium Gluconate 4.6 MEQ in Sodium Chloride 0.9% 100 ML IVPB SCH (16:45)
[2020-07-20] MEDS ORDERED: Ondansetron ODT 4 MG TAB PO PRN (19:01)
[2020-07-20] MEDS ORDERED: Ondansetron PF 4 MG/2 ML Vial IVP PRN (19:01)
[2020-07-20 19:14] LABS: Anion Gap 13 mmol/L (10-20); BUN (Urea Nitrogen) 46 mg/dL (9.8-20.1); Calc. Creatinine Clearance 0 mL/min (70-130); Calcium 9.6 mg/dL (7.8-10.44); Carbon Dioxide 22 mmol/L (22-29); Chloride 111 mmol/L (98-107); Glucose 150 mg/dL (70-105); Potassium 4.6 mmol/L (3.5-5.1); Sodium 141 mmol/L (136-145)
[2020-07-20 20:22] LABS: Creatinine, Urine 66.59 mg/dL (47-110)
[2020-07-20] MEDS ORDERED: Ferrous Sulfate 325 MG TAB PO SCH (20:30)
[2020-07-20] MEDS ORDERED: Dextrose 50% Abboject 50 ML SYRINGE SLOW IVP PRN (20:53)
[2020-07-20] MEDS ORDERED: Dextrose 5% in Water 1,000 ML IV PRN (20:53)
[2020-07-20] MEDS ORDERED: Sodium Chloride 0.9% 1,000 ML IV SCH (21:30)
[2020-07-20] MEDS: Ascorbic Acid 500 mg Chewable Tablet PO SCH (22:06)
[2020-07-20] MEDS: Lantus 1000 UNITS/10 ML VIAL SC SCH (22:12)
[2020-07-20] MEDS: HYDROcodone/Acetaminophen 7.5/325 mg Tablet PO PRN (22:14)
[2020-07-20 23:28] VITALS: BMI 24.2
[2020-07-21 01:54] LABS: SARS-CoV-2 PCR by NAA Not Detected (NotDetected)
[2020-07-21] MEDS: hydrOXYzine 25 MG TAB PO PRN ×4 (02:06→23:56)
[2020-07-21 05:56] LABS: ALT (SGPT) 28 U/L (8-55); AST (SGOT) 37 U/L (5-34); Albumin 2.5 g/dL (3.5-5.0); Alkaline Phosphatase 223 U/L (40-110); Anion Gap 11 mmol/L (10-20); BUN (Urea Nitrogen) 45 mg/dL (9.8-20.1); Bilirubin, Total 1.9 mg/dL (0.2-1.2); Calc. Creatinine Clearance 34 mL/min (70-130); Calcium 9.2 mg/dL (7.8-10.44); Carbon Dioxide 21 mmol/L (22-29); Chloride 110 mmol/L (98-107); Globulin 5.9 g/dL (2.4-3.5); Glucose 381 mg/dL (70-105); Potassium 4.5 mmol/L (3.5-5.1); Protein, Total 8.4 g/dL (6.0-8.3); Sodium 137 mmol/L (136-145)
[2020-07-21 06:03] LABS: Band 4 % (5-11); Eosinophils 10 % (0-10); Lymphocytes 12 % (21-51); MDiff Complete? YES; Mean Corpuscular HGB CONC 31.7 g/dL (32.0-36.0); Mean Corpuscular Hemoglobin 29.4 pg (27.0-31.0); Mean Corpuscular Volume 92.9 fL (78.0-98.0); Mean Platelet Volume 9.2 fL (7.4-10.4); Monocytes 13 % (0-10); Neutrophil 61 % (42-75); Platelet Count 67 thou/uL (130-400); Platelet Morphology Comment Appears Decreased; RBC Distribution Width 12.7 % (11.5-14.5); Red Blood Cell (RBC) Count 3.39 mill/uL (4.20-5.40); White Blood Cell (WBC) Count 5.4 thou/uL (4.8-10.8)
[2020-07-21] MEDS: HumaLOG 300 UNITS/3 ML VIAL SC PRN ×4 (06:13→22:05)
[2020-07-21] MEDS: Ferrous Sulfate 325 MG TAB PO SCH ×2 (08:16→17:15)
[2020-07-21] MEDS: Lantus 1000 UNITS/10 ML VIAL SC SCH ×2 (08:16→22:04)
[2020-07-21] MEDS: Atenolol 50 MG TAB PO SCH (08:16)
[2020-07-21] MEDS: Ascorbic Acid 500 mg Chewable Tablet PO SCH ×2 (08:16→22:04)
[2020-07-21] MEDS: Cholecalciferol 1,000 UNITS (25 MCG) TAB PO SCH (08:16)
[2020-07-21] MEDS: Folic Acid 1 MG TAB PO SCH (08:16)
[2020-07-21] MEDS: Rifaximin 550 MG TAB PO SCH ×2 (08:17→22:04)
[2020-07-21] MEDS: HYDROcodone/Acetaminophen 7.5/325 mg Tablet PO PRN ×3 (08:25→23:55)
[2020-07-21] MEDS ORDERED: Enoxaparin Sodium 40 MG/0.4 ML SYRINGE SC SCH (09:00)
[2020-07-21] MEDS ORDERED: Lantus 1000 UNITS/10 ML VIAL SC SCH (09:00)
[2020-07-21] MEDS ORDERED: Furosemide 20 MG TAB PO SCH (09:00)
[2020-07-21] MEDS: Albumin 25% 25 GM/100 ML BOT IVPB SCH ×2 (11:10→19:43)
[2020-07-21] MEDS: Sodium Chloride 0.9% 1,000 ML IV SCH ×2 (11:11→19:44)
[2020-07-21] MEDS: Midodrine HCl 5 MG TAB PO SCH ×2 (14:03→22:04)
[2020-07-22] MEDS: Albumin 25% 25 GM/100 ML BOT IVPB SCH ×4 (03:42→20:41)
[2020-07-22 04:44] LABS: ALT (SGPT) 21 U/L (8-55); AST (SGOT) 29 U/L (5-34); Albumin 2.7 g/dL (3.5-5.0); Alkaline Phosphatase 185 U/L (40-110); Anion Gap 11 mmol/L (10-20); BUN (Urea Nitrogen) 38 mg/dL (9.8-20.1); Bilirubin, Total 1.3 mg/dL (0.2-1.2); Calc. Creatinine Clearance 37 mL/min (70-130); Carbon Dioxide 20 mmol/L (22-29); Chloride 113 mmol/L (98-107); Globulin 4.7 g/dL (2.4-3.5); Glucose 367 mg/dL (70-105); Potassium 4.1 mmol/L (3.5-5.1); Protein, Total 7.4 g/dL (6.0-8.3); Sodium 140 mmol/L (136-145)
[2020-07-22 05:12] LABS: Band 5 % (5-11); Eosinophils 7 % (0-10); Hemoglobin 8.2 g/dL (12.0-16.0); Lymphocytes 5 % (21-51); MDiff Complete? YES; Mean Corpuscular HGB CONC 32.6 g/dL (32.0-36.0); Mean Corpuscular Hemoglobin 30.4 pg (27.0-31.0); Mean Corpuscular Volume 93.1 fL (78.0-98.0); Mean Platelet Volume 9.8 fL (7.4-10.4); Monocytes 15 % (0-10); Neutrophil 68 % (42-75); Platelet Count 56 thou/uL (130-400); Platelet Morphology Comment Appears Decreased; RBC Distribution Width 12.4 % (11.5-14.5); Red Blood Cell (RBC) Count 2.71 mill/uL (4.20-5.40); White Blood Cell (WBC) Count 3.5 thou/uL (4.8-10.8)
[2020-07-22] MEDS: HumaLOG 300 UNITS/3 ML VIAL SC PRN ×3 (06:00→17:42)
[2020-07-22] MEDS: HYDROcodone/Acetaminophen 7.5/325 mg Tablet PO PRN (06:10)
[2020-07-22] MEDS: hydrOXYzine 25 MG TAB PO PRN (06:11)
[2020-07-22] MEDS: Sodium Chloride 0.9% 1,000 ML IV SCH ×2 (08:48→20:41)
[2020-07-22] MEDS: Ferrous Sulfate 325 MG TAB PO SCH ×2 (08:48→17:42)
[2020-07-22] MEDS: Ascorbic Acid 500 mg Chewable Tablet PO SCH ×2 (08:49→20:42)
[2020-07-22] MEDS: Atenolol 50 MG TAB PO SCH (08:49)
[2020-07-22] MEDS: Cholecalciferol 1,000 UNITS (25 MCG) TAB PO SCH (08:50)
[2020-07-22] MEDS: Folic Acid 1 MG TAB PO SCH (08:50)
[2020-07-22] MEDS: Midodrine HCl 5 MG TAB PO SCH ×3 (08:54→20:42)
[2020-07-22] MEDS: Pregabalin 75 MG CAP PO SCH ×2 (08:55→20:42)
[2020-07-22] MEDS: Rifaximin 550 MG TAB PO SCH ×2 (08:56→20:42)
[2020-07-22] MEDS: Lantus 1000 UNITS/10 ML VIAL SC SCH ×2 (08:57→09:10)
[2020-07-22] MEDS ORDERED: Fluconazole 100 MG TAB PO SCH (10:00)
[2020-07-22] MEDS ORDERED: Lantus 1000 UNITS/10 ML VIAL SC ONE (10:00)
[2020-07-22] MEDS: hydrOXYzine 10 MG TAB PO PRN ×2 (14:58→23:07)
[2020-07-22] MEDS ORDERED: Lantus 1000 UNITS/10 ML VIAL SC SCH (21:00)
[2020-07-23] MEDS: Albumin 25% 25 GM/100 ML BOT IVPB SCH ×2 (03:15→12:06)
[2020-07-23 05:00] LABS: ALT (SGPT) 21 U/L (8-55); AST (SGOT) 37 U/L (5-34); Albumin 3.2 g/dL (3.5-5.0); Alkaline Phosphatase 156 U/L (40-110); Anion Gap 11 mmol/L (10-20); BUN (Urea Nitrogen) 25 mg/dL (9.8-20.1); Bilirubin, Total 1.4 mg/dL (0.2-1.2); Calc. Creatinine Clearance 49 mL/min (70-130); Calcium 8.8 mg/dL (7.8-10.44); Carbon Dioxide 18 mmol/L (22-29); Chloride 113 mmol/L (98-107); Globulin 4.3 g/dL (2.4-3.5); Glucose 123 mg/dL (70-105); Potassium 4.3 mmol/L (3.5-5.1); Protein, Total 7.5 g/dL (6.0-8.3); Sodium 138 mmol/L (136-145)
[2020-07-23 05:10] LABS: Hemoglobin 8.1 g/dL (12.0-16.0); Mean Corpuscular HGB CONC 32.9 g/dL (32.0-36.0); Mean Corpuscular Hemoglobin 30.3 pg (27.0-31.0); Mean Corpuscular Volume 92.2 fL (78.0-98.0); Mean Platelet Volume 9.8 fL (7.4-10.4); Platelet Count 57 thou/uL (130-400); RBC Distribution Width 12.4 % (11.5-14.5); Red Blood Cell (RBC) Count 2.68 mill/uL (4.20-5.40); White Blood Cell (WBC) Count 3.2 thou/uL (4.8-10.8)
[2020-07-23] MEDS ORDERED: Lantus 1000 UNITS/10 ML VIAL SC SCH (05:58)
[2020-07-23] MEDS: Sodium Chloride 0.9% 1,000 ML IV SCH ×2 (06:09→13:36)
[2020-07-23 06:18] LABS: Band 12 % (5-11); Eosinophils 8 % (0-10); Lymphocytes 9 % (21-51); MDiff Complete? YES; Monocytes 14 % (0-10); Neutrophil 57 % (42-75); Platelet Morphology Comment Appears Decreased
[2020-07-23] MEDS ORDERED: Lantus 1000 UNITS/10 ML VIAL SC ONE (10:00)
[2020-07-23] MEDS: Cholecalciferol 1,000 UNITS (25 MCG) TAB PO SCH (10:14)
[2020-07-23] MEDS: Ferrous Sulfate 325 MG TAB PO SCH ×2 (10:14→16:44)
[2020-07-23] MEDS: Atenolol 50 MG TAB PO SCH (10:14)
[2020-07-23] MEDS: Pregabalin 75 MG CAP PO SCH ×2 (10:15→21:08)
[2020-07-23] MEDS: Midodrine HCl 5 MG TAB PO SCH ×3 (10:15→21:08)
[2020-07-23] MEDS: Folic Acid 1 MG TAB PO SCH (10:15)
[2020-07-23] MEDS: Rifaximin 550 MG TAB PO SCH ×2 (10:15→21:08)
[2020-07-23] MEDS: Ascorbic Acid 500 mg Chewable Tablet PO SCH ×2 (10:16→21:08)
[2020-07-23] MEDS: HumaLOG 300 UNITS/3 ML VIAL SC PRN ×3 (14:03→21:09)
[2020-07-23] MEDS: hydrOXYzine 10 MG TAB PO PRN (18:23)
[2020-07-24] MEDS: hydrOXYzine 10 MG TAB PO PRN ×2 (03:17→12:51)
[2020-07-24 04:36] LABS: #Eosinphils 0.2 thou/uL (0.0-0.7); #Lymphocytes 0.3 thou/uL (1.20-3.40); #Monocytes 0.6 thou/uL (0.11-0.59); %Basophils 1.1 % (0.0-1.0); %Eosinophils 4.3 % (0.0-10.0); %Lymphocytes 7.4 % (21.0-51.0); %Monocytes 14.5 % (0.0-10.0); %Neutrophils 72.7 % (42.0-75.0); Hemoglobin 8.7 g/dL (12.0-16.0); Mean Corpuscular HGB CONC 33.4 g/dL (32.0-36.0); Mean Corpuscular Hemoglobin 30.2 pg (27.0-31.0); Mean Corpuscular Volume 90.6 fL (78.0-98.0); Mean Platelet Volume 8.2 fL (7.4-10.4); Platelet Count 65 thou/uL (130-400); RBC Distribution Width 12.1 % (11.5-14.5); Red Blood Cell (RBC) Count 2.87 mill/uL (4.20-5.40); White Blood Cell (WBC) Count 4.1 thou/uL (4.8-10.8)
[2020-07-24 04:51] LABS: ALT (SGPT) 20 U/L (8-55); AST (SGOT) 27 U/L (5-34); Albumin 3.5 g/dL (3.5-5.0); Alkaline Phosphatase 171 U/L (40-110); Anion Gap 12 mmol/L (10-20); BUN (Urea Nitrogen) 21 mg/dL (9.8-20.1); Bilirubin, Total 1.7 mg/dL (0.2-1.2); Calc. Creatinine Clearance 45 mL/min (70-130); Calcium 9.3 mg/dL (7.8-10.44); Carbon Dioxide 19 mmol/L (22-29); Chloride 111 mmol/L (98-107); Globulin 4.2 g/dL (2.4-3.5); Glucose 177 mg/dL (70-105); Potassium 4.1 mmol/L (3.5-5.1); Protein, Total 7.7 g/dL (6.0-8.3); Sodium 138 mmol/L (136-145)
[2020-07-24] MEDS ORDERED: Lantus 1000 UNITS/10 ML VIAL SC SCH ×2 (06:00→09:00)
[2020-07-24] MEDS: Atenolol 50 MG TAB PO SCH (08:37)
[2020-07-24] MEDS: Cholecalciferol 1,000 UNITS (25 MCG) TAB PO SCH (08:37)
[2020-07-24] MEDS: Ferrous Sulfate 325 MG TAB PO SCH (08:37)
[2020-07-24] MEDS: Ascorbic Acid 500 mg Chewable Tablet PO SCH (08:37)
[2020-07-24] MEDS: Folic Acid 1 MG TAB PO SCH (08:38)
[2020-07-24] MEDS: Pregabalin 75 MG CAP PO SCH (08:39)
[2020-07-24] MEDS: Midodrine HCl 5 MG TAB PO SCH (08:39)
[2020-07-24] MEDS: Rifaximin 550 MG TAB PO SCH (08:40)
[2020-07-24] MEDS ORDERED: Fluconazole 100 MG TAB PO SCH (09:00)
[2020-07-24 12:25] VITALS: BP 165/85; TEMP 98.6
[2020-07-24] MEDS: HumaLOG 300 UNITS/3 ML VIAL SC PRN (12:25)
== END 2020-07-24 13:14 | disposition home or self-care (01) | DRG 441 ==
LOC: ERS 14:20 → ERHOLD 17:07 → 2NO 21:04
PROVIDERS: ADMIT Student in an Organized Health Care Education/Training Program; ATTEND Student in an Organized Health Care Education/Training Program
DX: K72.00 Acute and subacute hepatic failure without coma (principal); K76.7 Hepatorenal syndrome; G93.41 Metabolic encephalopathy; N17.9 Acute kidney failure, unspecified; E87.2 Acidosis; B37.49 Other urogenital candidiasis; K74.69 Other cirrhosis of liver; Z20.822 Contact with and (suspected) exposure to COVID-19; K75.4 Autoimmune hepatitis; I12.9 Hypertensive chronic kidney disease with stage 1 through stage 4 chronic kidney disease, or unspecified chronic kidney disease; E11.22 Type 2 diabetes mellitus with diabetic chronic kidney disease; D69.59 Other secondary thrombocytopenia; E11.51 Type 2 diabetes mellitus with diabetic peripheral angiopathy without gangrene; D63.1 Anemia in chronic kidney disease; N18.30 Chronic kidney disease, stage 3 unspecified; E87.5 Hyperkalemia; E86.0 Dehydration; K80.20 Calculus of gallbladder without cholecystitis without obstruction; F41.9 Anxiety disorder, unspecified; Z90.710 Acquired absence of both cervix and uterus; Z79.4 Long term (current) use of insulin; Z79.899 Other long term (current) drug therapy
CPT/HCPCS: 36415; 36416; 51701; 70450; 74176; 76705; 80053; 81003; 81015; 82140; 82570; 83690; 84443; 84540; 85025; 85610; 85730; 87040; 87086; 87635; 93005; 96365; 96367; 96375; J0696; J1815; J2001; J3490; P9047; U0003; U0005

== ENCOUNTER 2020-09-13 16:50 | Outpatient (CLI) | payer MEDICARE, MEDICAID | END 2020-09-13 16:51 | disposition home or self-care (01) | LOC: DTY/OP 16:50 | PROVIDERS: ATTEND Obstetrics & Gynecology | DX: E11.9 Type 2 diabetes mellitus without complications (principal); Z71.3 Dietary counseling and surveillance | CPT/HCPCS: 97802 ==

== ENCOUNTER 2020-11-08 09:19 | Outpatient (CLI) | payer MEDICARE, MEDICAID ==
[2020-11-08 10:24] LABS: #Eosinphils 0.1 10x3/uL (0.0-0.5); #Monocytes 1.6 10x3/uL (0.0-1.1); #Neutrophils 9.2 10x3/uL (1.5-8.4); %Basophils 0.3 % (0.0-2.0); %Eosinophils 0.6 % (0.0-6.0); %Lymphocytes 4.9 % (18.0-47.0); %Monocytes 13.7 % (0.0-10.0); Hemoglobin 11.8 g/dL (12.0-15.5); Mean Corpuscular HGB CONC 32.5 g/dL (32.0-36.0); Mean Corpuscular Hemoglobin 28.4 pg (27.0-33.0); Mean Corpuscular Volume 87.3 fl (81.6-98.3); Platelet Count 77 10x3/uL (150-450); RBC Distribution Width 13.8 % (11.5-14.5); Red Blood Cell (RBC) Count 4.16 10x6/uL (3.90-5.03); White Blood Cell (WBC) Count 11.6 10x3/uL (3.5-10.5)
[2020-11-09 02:26] LABS: SARS-CoV-2 PCR by NAA Not Detected (NotDetected)
== END 2020-11-08 09:20 | disposition home or self-care (01) ==
LOC: LABBT 09:19
PROVIDERS: ATTEND Orthopaedic Surgery Hand Surgery
DX: Z01.812 Encounter for preprocedural laboratory examination (principal); G56.01 Carpal tunnel syndrome, right upper limb; Z20.822 Contact with and (suspected) exposure to COVID-19
CPT/HCPCS: 85025; U0003; U0005

== ENCOUNTER 2020-11-10 09:18 | Day surgery (SDC) | payer MEDICARE, MEDICAID ==
[2020-11-09 11:44] VITALS: BMI 24.9
[2020-11-10] MEDS ORDERED: ceFAZolin 2 GM/Dextrose 50 ML IVPB ONE (09:31)
[2020-11-10] MEDS ORDERED: Bacitracin Zinc Ointment 30 gm TUBE ONE (11:02)
[2020-11-10] MEDS ORDERED: Neomycin-Polymyxin 1 ML AMP ONE (11:02)
[2020-11-10] MEDS ORDERED: Bupivacaine PF 0.5% 30 ML VIAL ONE (11:02)
[2020-11-10] MEDS ORDERED: Fentanyl 100 MCG/2 ML VIAL ONE (12:25)
[2020-11-10] MEDS ORDERED: Ondansetron PF 4 MG/2 ML Vial ONE (12:56)
[2020-11-10] MEDS ORDERED: PROPOFOL 200 MG/20 ML VIAL ONE (12:56)
[2020-11-10] MEDS ORDERED: Dexamethasone 20 MG/5 ML VIAL ONE (12:56)
[2020-11-10] MEDS ORDERED: Lidocaine 1% PF 5 ML VIAL ONE (12:56)
[2020-11-10] MEDS ORDERED: PHENYLEPHRINE-NS 100 MCG/ML 10 ML SYRINGE ONE (12:56)
[2020-11-10] MEDS ORDERED: Betamet Acet/Betamet Na Ph 30 MG/5 ML VIAL ONE (13:12)
[2020-11-10] MEDS ORDERED: HYDROcodone/Acetaminophen 5/325 mg Tablet ONE (14:57)
== END 2020-11-10 15:30 | disposition home or self-care (01) ==
LOC: SDC 09:18
PROVIDERS: ATTEND Orthopaedic Surgery Hand Surgery
PROC: 01N50ZZ Release Median Nerve, Open Approach (ICD-10-PCS; principal; 2020-11-10)
DX: G56.01 Carpal tunnel syndrome, right upper limb (principal); I10 Essential (primary) hypertension; E78.5 Hyperlipidemia, unspecified; E11.9 Type 2 diabetes mellitus without complications; Z79.2 Long term (current) use of antibiotics; Z79.4 Long term (current) use of insulin; Z79.899 Other long term (current) drug therapy
CPT/HCPCS: 36416; J0690; J0702; J1100; J2405; J2704; J3010; S0020

== ENCOUNTER 2021-01-25 14:58 | Emergency (ER) | payer MEDICARE, MEDICAID ==
[2021-01-25 15:31] LABS: Hemoglobin 12.5 g/dL (12.0-16.0); Mean Corpuscular Volume 91.2 fL (78.0-98.0); Mean Platelet Volume 8.9 fL (7.4-10.4); Platelet Count 65 thou/uL (130-400); Red Blood Cell (RBC) Count 4.02 mill/uL (4.20-5.40); White Blood Cell (WBC) Count 3.6 thou/uL (4.8-10.8)
[2021-01-25 15:46] LABS: ALT (SGPT) 30 U/L (8-55); AST (SGOT) 49 U/L (5-34); Albumin 2.8 g/dL (3.5-5.0); Alkaline Phosphatase 204 U/L (40-110); Anion Gap 6 mmol/L (10-20); BUN (Urea Nitrogen) 29 mg/dL (9.8-20.1); Bilirubin, Total 2.3 mg/dL (0.2-1.2); CK (CPK) 88 U/L (29-168); Calc. Creatinine Clearance 0 mL/min (70-130); Calcium 9.1 mg/dL (7.8-10.44); Carbon Dioxide 29 mmol/L (22-29); Chloride 104 mmol/L (98-107); Globulin 6.3 g/dL (2.4-3.5); Glucose 173 mg/dL (70-105); Potassium 4.1 mmol/L (3.5-5.1); Protein, Total 9.1 g/dL (6.0-8.3); Sodium 135 mmol/L (136-145)
[2021-01-25 15:48] LABS: Band 5 % (5-11); Eosinophils 6 % (0-10); Lymphocytes 14 % (21-51); MDiff Complete? YES; Monocytes 18 % (0-10); Neutrophil 57 % (42-75); Platelet Morphology Comment Appears Decreased; RBC Morphology Normal
[2021-01-25 16:05] LABS: INR-International Normal Ratio 1.2; PTT 43.5 sec (22.9-36.1); Prothrombin Time 15.4 sec (12.0-14.7)
[2021-01-25 16:42] LABS: Bilirubin Negative (Negative); Blood, Urine 3+ (Negative); Clarity Turbid (Clear); Glucose, Urine (Dipstick) Normal (Negative); Ketone, Urine Negative (Negative); Leukocyte 500 Leu/uL (Negative); Nitrite Negative (Negative); Protein, Urine (Dipstick) 10 mg/dL (Neg-Trace); RBC/HPF Greater than 50 HPF (0-3); Specific Gravity, Urine 1.011 (1.002-1.036); Squamous Epithelial 0-3 HPF (0-3); Urobilinogen Normal mg/dL (Less than 2); WBC/HPF Greater than 50 HPF (0-3)
[2021-01-25 16:43] LABS: Bacteria/HPF 1+ HPF (None Seen)
[2021-01-25] MEDS ORDERED: Cephalexin 250 MG CAP ONE (19:40)
== END 2021-01-25 19:45 | disposition home or self-care (01) ==
LOC: ERS 14:58
DX: N39.0 Urinary tract infection, site not specified (principal); R14.0 Abdominal distension (gaseous); R18.8 Other ascites; E11.40 Type 2 diabetes mellitus with diabetic neuropathy, unspecified; K74.60 Unspecified cirrhosis of liver; I10 Essential (primary) hypertension; Z79.899 Other long term (current) drug therapy; Z79.4 Long term (current) use of insulin
CPT/HCPCS: 36415; 74176; 80053; 81003; 81015; 82550; 83690; 85025; 85610; 85730

== ENCOUNTER 2021-02-17 21:40 | Inpatient (IN) | payer MEDICARE, MEDICAID ==
[2021-02-17 22:30] LABS: #Eosinphils 0.1 thou/uL (0.0-0.7); #Lymphocytes 0.5 thou/uL (1.20-3.40); #Monocytes 0.7 thou/uL (0.11-0.59); %Basophils 0.6 % (0.0-1.0); %Eosinophils 1.5 % (0.0-10.0); %Lymphocytes 7.5 % (21.0-51.0); %Monocytes 10.8 % (0.0-10.0); %Neutrophils 79.6 % (42.0-75.0); Hemoglobin 13.8 g/dL (12.0-16.0); Mean Corpuscular HGB CONC 34.5 g/dL (32.0-36.0); Mean Corpuscular Hemoglobin 31.5 pg (27.0-31.0); Mean Corpuscular Volume 91.1 fL (78.0-98.0); Mean Platelet Volume 9.9 fL (7.4-10.4); Platelet Count 57 thou/uL (130-400); Platelet Morphology Comment Appears Decreased; RBC Distribution Width 13.8 % (11.5-14.5); RBC Morphology Normal; White Blood Cell (WBC) Count 6.3 thou/uL (4.8-10.8)
[2021-02-17] MEDS ORDERED: Morphine 4 MG/ML VIAL ONE (22:55)
[2021-02-17] MEDS ORDERED: Ondansetron PF 4 MG/2 ML Vial ONE (22:55)
[2021-02-17 23:18] LABS: ALT (SGPT) 30 U/L (8-55); AST (SGOT) 43 U/L (5-34); Albumin 3.1 g/dL (3.5-5.0); Alkaline Phosphatase 192 U/L (40-110); Anion Gap 13 mmol/L (10-20); BUN (Urea Nitrogen) 25 mg/dL (9.8-20.1); Bilirubin, Total 2.2 mg/dL (0.2-1.2); Calc. Creatinine Clearance 0 mL/min (70-130); Calcium 9.1 mg/dL (7.8-10.44); Carbon Dioxide 22 mmol/L (22-29); Chloride 105 mmol/L (98-107); Globulin 6.4 g/dL (2.4-3.5); Glucose 189 mg/dL (70-105); Lipase 150 U/L (8-78); Potassium 4.1 mmol/L (3.5-5.1); Protein, Total 9.5 g/dL (6.0-8.3); Sodium 136 mmol/L (136-145)
[2021-02-18 01:20] LABS: RBC Count-Automated (BF) 1287 /cu.mm; WBC/Nucleated-Auto (BF) 82 /cu.mm
[2021-02-18 01:21] LABS: BF Color Yellow; Body Fluid Source Ascites Body Fluid; Clarity Cloudy/Turbid (Clear); Tube # 1
[2021-02-18] MEDS ORDERED: Acetaminophen 325 MG TAB PO PRN (01:42)
[2021-02-18] MEDS ORDERED: Ondansetron ODT 4 MG TAB PO PRN (01:42)
[2021-02-18 01:45] LABS: BF Segmented Neutrophils 6 %; Cell Count Non Hematic 57 %; Lymphocytes 37 %
[2021-02-18] MEDS ORDERED: HumaLOG 300 UNITS/3 ML VIAL SC PRN ×2 (02:01)
[2021-02-18] MEDS ORDERED: Dextrose 50% Abboject 50 ML SYRINGE SLOW IVP PRN (02:01)
[2021-02-18] MEDS ORDERED: Dextrose 5% in Water 1,000 ML IV PRN (02:01)
[2021-02-18 02:07] VITALS: BMI 28.0
[2021-02-18] MEDS: cefTRIAXone\\ROCEPHIN 2 GM in Sodium Chloride 0.9% 100 ML IVPB SCH (02:29)
[2021-02-18] MEDS: Morphine 4 MG/ML VIAL SLOW IVP PRN ×5 (02:30→20:40)
[2021-02-18] MEDS ORDERED: Bupivacaine 0.5% 10 ML VIAL ONE (03:12)
[2021-02-18 06:02] LABS: #Eosinphils 0.1 thou/uL (0.0-0.7); #Lymphocytes 0.6 thou/uL (1.20-3.40); #Neutrophils 5.9 thou/uL (1.40-6.50); %Basophils 0.6 % (0.0-1.0); %Eosinophils 0.9 % (0.0-10.0); %Monocytes 12.5 % (0.0-10.0); %Neutrophils 77.9 % (42.0-75.0); Hemoglobin 12.7 g/dL (12.0-16.0); Mean Corpuscular HGB CONC 32.8 g/dL (32.0-36.0); Mean Corpuscular Hemoglobin 30.2 pg (27.0-31.0); Mean Platelet Volume 9.1 fL (7.4-10.4); Platelet Count 56 thou/uL (130-400); RBC Distribution Width 13.8 % (11.5-14.5); White Blood Cell (WBC) Count 7.6 thou/uL (4.8-10.8)
[2021-02-18 06:15] LABS: ALT (SGPT) 26 U/L (8-55); AST (SGOT) 38 U/L (5-34); Albumin 2.7 g/dL (3.5-5.0); Alkaline Phosphatase 165 U/L (40-110); Anion Gap 12 mmol/L (10-20); BUN (Urea Nitrogen) 24 mg/dL (9.8-20.1); Bilirubin, Total 2.1 mg/dL (0.2-1.2); Calc. Creatinine Clearance 34 mL/min (70-130); Calcium 8.6 mg/dL (7.8-10.44); Carbon Dioxide 21 mmol/L (22-29); Chloride 105 mmol/L (98-107); Globulin 5.8 g/dL (2.4-3.5); Glucose 144 mg/dL (70-105); Potassium 3.7 mmol/L (3.5-5.1); Protein, Total 8.5 g/dL (6.0-8.3); Sodium 134 mmol/L (136-145)
[2021-02-18] MEDS ORDERED: FLU VACC QS2021-22(6MOS UP)/PF 60 MCG/0.5 ML SYRINGE IM ONE (09:00)
[2021-02-18] MEDS: Pregabalin 75 MG CAP PO SCH ×2 (09:05→20:32)
[2021-02-18] MEDS: Ascorbic Acid 500 mg Chewable Tablet PO SCH (09:06)
[2021-02-18] MEDS: Furosemide 20 MG TAB PO SCH (09:07)
[2021-02-18] MEDS: Rifaximin 550 MG TAB PO SCH ×2 (09:07→20:31)
[2021-02-18] MEDS: Cholecalciferol 1,000 UNITS (25 MCG) TAB PO SCH (09:07)
[2021-02-18] MEDS: Lantus 1000 UNITS/10 ML VIAL SC SCH ×2 (09:14→20:32)
[2021-02-18] MEDS ORDERED: Spironolactone 100 MG TAB PO SCH (10:45)
[2021-02-18] MEDS: Atenolol 50 MG TAB PO SCH (10:53)
[2021-02-18 14:15] LABS: SARS-CoV-2 PCR by NAA Not Detected (NotDetected)
[2021-02-18] MEDS: hydrOXYzine 25 MG TAB PO PRN (16:34)
[2021-02-18 17:27] LABS: Hemoglobin 11.7 g/dL (12.0-16.0); Mean Corpuscular HGB CONC 34.5 g/dL (32.0-36.0); Mean Corpuscular Volume 92.7 fL (78.0-98.0); Mean Platelet Volume 9.6 fL (7.4-10.4); Platelet Count 53 thou/uL (130-400); RBC Distribution Width 13.6 % (11.5-14.5); Red Blood Cell (RBC) Count 3.65 mill/uL (4.20-5.40); White Blood Cell (WBC) Count 6.6 thou/uL (4.8-10.8)
[2021-02-18 17:32] LABS: INR-International Normal Ratio 1.5; Prothrombin Time 18.4 sec (12.0-14.7)
[2021-02-18 17:33] LABS: PTT 50.4 sec (22.9-36.1)
[2021-02-18 17:44] LABS: Band 5 % (5-11); Eosinophils 1 % (0-10); Lymphocytes 7 % (21-51); MDiff Complete? YES; Monocytes 19 % (0-10); Neutrophil 68 % (42-75); Platelet Morphology Comment Appears Decreased; Polychromasia SLIGHT = 2-3 cells (100X) (0-2/hpf)
[2021-02-18] MEDS: Ferrous Sulfate 325 MG TAB PO SCH (20:31)
[2021-02-19] MEDS: cefTRIAXone\\ROCEPHIN 2 GM in Sodium Chloride 0.9% 100 ML IVPB SCH (01:03)
[2021-02-19] MEDS: Morphine 4 MG/ML VIAL SLOW IVP PRN ×5 (01:03→21:38)
[2021-02-19 07:18] LABS: Bilirubin Moderate (Negative); Blood, Urine Large (Negative); Glucose, Urine (Dipstick) Negative (Negative); Ketone, Urine Trace mg/dL (Negative); Leukocyte Moderate (Negative); Nitrite Positive (Negative); Protein, Urine (Dipstick) > or equal to 300 mg/dL (Neg-Trace); Specific Gravity, Urine 1.025 (1.005-1.030); pH, Urine 6.5 (5.0-9.0)
[2021-02-19 07:29] LABS: Clarity Cloudy (Clear); RBC/HPF Greater than 50 HPF (0-3); WBC/HPF Greater Than 50 HPF (0-3)
[2021-02-19 07:34] LABS: Squamous Epithelial 0-3 HPF (0-3); Transitional Epithelial 0-3 HPF (None Seen)
[2021-02-19 07:35] LABS: Bacteria/HPF 1+ HPF (None Seen); Creatinine, Urine 116.52 mg/dL (47-110); Yeast-Budding 1+ HPF (None Seen); Yeast-Hyphae 1+ HPF (None Seen)
[2021-02-19 08:18] LABS: ALT (SGPT) 24 U/L (8-55); AST (SGOT) 39 U/L (5-34); Albumin 2.8 g/dL (3.5-5.0); Alkaline Phosphatase 146 U/L (40-110); Anion Gap 12 mmol/L (10-20); BUN (Urea Nitrogen) 34 mg/dL (9.8-20.1); Bilirubin, Total 1.6 mg/dL (0.2-1.2); Calc. Creatinine Clearance 30 mL/min (70-130); Calcium 8.5 mg/dL (7.8-10.44); Carbon Dioxide 20 mmol/L (22-29); Chloride 102 mmol/L (98-107); Globulin 5.5 g/dL (2.4-3.5); Glucose 129 mg/dL (70-105); Potassium 3.9 mmol/L (3.5-5.1); Protein, Total 8.3 g/dL (6.0-8.3); Sodium 130 mmol/L (136-145)
[2021-02-19 08:21] LABS: Hemoglobin 11.3 g/dL (12.0-16.0); Mean Corpuscular HGB CONC 33.1 g/dL (32.0-36.0); Mean Corpuscular Hemoglobin 30.2 pg (27.0-31.0); Mean Corpuscular Volume 91.4 fL (78.0-98.0); Mean Platelet Volume 9.1 fL (7.4-10.4); Platelet Count 61 thou/uL (130-400); RBC Distribution Width 13.6 % (11.5-14.5); Red Blood Cell (RBC) Count 3.74 mill/uL (4.20-5.40); White Blood Cell (WBC) Count 5.5 thou/uL (4.8-10.8)
[2021-02-19] MEDS: Ferrous Sulfate 325 MG TAB PO SCH ×2 (08:46→21:46)
[2021-02-19] MEDS: Rifaximin 550 MG TAB PO SCH ×2 (08:46→21:46)
[2021-02-19] MEDS: Ascorbic Acid 500 mg Chewable Tablet PO SCH (08:46)
[2021-02-19] MEDS: Cholecalciferol 1,000 UNITS (25 MCG) TAB PO SCH (08:46)
[2021-02-19] MEDS: Pregabalin 75 MG CAP PO SCH ×2 (08:47→21:46)
[2021-02-19] MEDS: Furosemide 20 MG TAB PO SCH (08:47)
[2021-02-19] MEDS: Lantus 1000 UNITS/10 ML VIAL SC SCH ×2 (08:47→21:52)
[2021-02-19] MEDS: Atenolol 50 MG TAB PO SCH (09:00)
[2021-02-19 11:24] LABS: Band 6 % (5-11); Eosinophils 3 % (0-10); Lymphocytes 15 % (21-51); MDiff Complete? YES; Monocytes 20 % (0-10); Neutrophil 56 % (42-75); Platelet Morphology Comment Appears Decreased; Polychromasia SLIGHT = 2-3 cells (100X) (0-2/hpf)
[2021-02-19] MEDS ORDERED: Sodium Bicarbonate 2.5 MEQ/5 ML VIAL ONE (12:38)
[2021-02-19] MEDS ORDERED: Lidocaine 1% PF 5 ML VIAL ONE (12:38)
[2021-02-19] MEDS ORDERED: Spironolactone 100 MG TAB PO SCH (13:00)
[2021-02-19] MEDS ORDERED: hydrOXYzine 25 MG TAB PO PRN (14:20)
[2021-02-19] MEDS: hydrOXYzine 25 MG TAB PO PRN (14:37)
[2021-02-20] MEDS: Morphine 4 MG/ML VIAL SLOW IVP PRN ×4 (01:46→23:23)
[2021-02-20 07:09] LABS: Hemoglobin 10.9 g/dL (12.0-16.0); Mean Corpuscular HGB CONC 33.4 g/dL (32.0-36.0); Mean Corpuscular Hemoglobin 30.6 pg (27.0-31.0); Mean Corpuscular Volume 91.5 fL (78.0-98.0); Mean Platelet Volume 9.7 fL (7.4-10.4); Platelet Count 60 thou/uL (130-400); RBC Distribution Width 13.4 % (11.5-14.5); Red Blood Cell (RBC) Count 3.58 mill/uL (4.20-5.40); White Blood Cell (WBC) Count 3.8 thou/uL (4.8-10.8)
[2021-02-20 07:11] LABS: ALT (SGPT) 27 U/L (8-55); AST (SGOT) 48 U/L (5-34); Albumin 2.6 g/dL (3.5-5.0); Alkaline Phosphatase 142 U/L (40-110); Anion Gap 13 mmol/L (10-20); BUN (Urea Nitrogen) 40 mg/dL (9.8-20.1); Bilirubin, Total 1.5 mg/dL (0.2-1.2); Calc. Creatinine Clearance 28 mL/min (70-130); Calcium 8.5 mg/dL (7.8-10.44); Carbon Dioxide 20 mmol/L (22-29); Chloride 104 mmol/L (98-107); Globulin 5.3 g/dL (2.4-3.5); Glucose 106 mg/dL (70-105); Potassium 4.1 mmol/L (3.5-5.1); Protein, Total 7.9 g/dL (6.0-8.3); Sodium 133 mmol/L (136-145)
[2021-02-20 07:25] LABS: INR-International Normal Ratio 1.5; Prothrombin Time 17.9 sec (12.0-14.7)
[2021-02-20] MEDS: Lantus 1000 UNITS/10 ML VIAL SC SCH ×2 (09:00→21:13)
[2021-02-20 09:22] LABS: Band 4 % (5-11); Eosinophils 9 % (0-10); Lymphocytes 14 % (21-51); MDiff Complete? YES; Monocytes 12 % (0-10); Myelocyte 1 % (0-0); Neutrophil 54 % (42-75); Platelet Morphology Comment Appears Decreased; Reactive Lymphocytes 5 % (0-10)
[2021-02-20] MEDS: Pregabalin 75 MG CAP PO SCH ×2 (12:25→21:09)
[2021-02-20] MEDS: Cholecalciferol 1,000 UNITS (25 MCG) TAB PO SCH (12:26)
[2021-02-20] MEDS: Rifaximin 550 MG TAB PO SCH ×2 (12:27→21:09)
[2021-02-20] MEDS: Ferrous Sulfate 325 MG TAB PO SCH ×2 (12:27→21:09)
[2021-02-20] MEDS: Ascorbic Acid 500 mg Chewable Tablet PO SCH (12:27)
[2021-02-20] MEDS: Spironolactone 100 MG TAB PO SCH (12:27)
[2021-02-20] MEDS: Furosemide 20 MG TAB PO SCH (12:27)
[2021-02-20] MEDS: Atenolol 50 MG TAB PO SCH (12:28)
[2021-02-20] MEDS: Lactated Ringer's 1,000 ML IV SCH ×3 (12:28→23:23)
[2021-02-20] MEDS ORDERED: ADMIXTURE FEE FS SCH ×2 (14:00→17:00)
[2021-02-20] MEDS ORDERED: STERILE WATER FS SCH ×2 (14:00→17:00)
[2021-02-20] MEDS ORDERED: AMBISOME FS SCH ×2 (14:00→17:00)
[2021-02-20] MEDS: hydrOXYzine 25 MG TAB PO PRN (15:38)
[2021-02-20] MEDS ORDERED: Fentanyl 100 MCG/2 ML VIAL SLOW IVP SCH (19:23)
[2021-02-20] MEDS ORDERED: Octreotide Acetate 1,250 MCG in Sodium Chloride 0.9% 250 ML 250 ML IVPB SCH (23:00)
[2021-02-21] MEDS: Albumin 25% 25 GM/100 ML BOT IVPB SCH ×5 (00:07→23:10)
[2021-02-21] MEDS: Morphine 4 MG/ML VIAL SLOW IVP PRN ×2 (03:43→09:34)
[2021-02-21] MEDS: [UNRECOGNIZED DRUG - REMARK] FS SCH ×4 (05:29→23:00)
[2021-02-21 06:47] LABS: ALT (SGPT) 28 U/L (8-55); AST (SGOT) 45 U/L (5-34); Albumin 3.3 g/dL (3.5-5.0); Alkaline Phosphatase 147 U/L (40-110); Anion Gap 13 mmol/L (10-20); BUN (Urea Nitrogen) 36 mg/dL (9.8-20.1); Bilirubin, Total 1.9 mg/dL (0.2-1.2); Calc. Creatinine Clearance 32 mL/min (70-130); Carbon Dioxide 19 mmol/L (22-29); Chloride 104 mmol/L (98-107); Globulin 5.3 g/dL (2.4-3.5); Glucose 81 mg/dL (70-105); Potassium 3.9 mmol/L (3.5-5.1); Protein, Total 8.6 g/dL (6.0-8.3); Sodium 132 mmol/L (136-145)
[2021-02-21 07:04] LABS: Hemoglobin 11.4 g/dL (12.0-16.0); Mean Corpuscular HGB CONC 34.7 g/dL (32.0-36.0); Mean Corpuscular Hemoglobin 31.8 pg (27.0-31.0); Mean Corpuscular Volume 91.8 fL (78.0-98.0); Mean Platelet Volume 9.5 fL (7.4-10.4); Platelet Count 65 thou/uL (130-400); RBC Distribution Width 13.6 % (11.5-14.5); Red Blood Cell (RBC) Count 3.59 mill/uL (4.20-5.40); White Blood Cell (WBC) Count 3.6 thou/uL (4.8-10.8)
[2021-02-21] MEDS: Ferrous Sulfate 325 MG TAB PO SCH ×2 (09:28→20:59)
[2021-02-21] MEDS: Midodrine HCl 5 MG TAB PO SCH ×3 (09:29→21:00)
[2021-02-21] MEDS: Spironolactone 100 MG TAB PO SCH (09:29)
[2021-02-21] MEDS: Atenolol 50 MG TAB PO SCH (09:29)
[2021-02-21] MEDS: Rifaximin 550 MG TAB PO SCH ×2 (09:30→21:00)
[2021-02-21] MEDS: Cholecalciferol 1,000 UNITS (25 MCG) TAB PO SCH (09:30)
[2021-02-21] MEDS: Furosemide 20 MG TAB PO SCH (09:30)
[2021-02-21] MEDS: Ascorbic Acid 500 mg Chewable Tablet PO SCH (09:31)
[2021-02-21] MEDS: Pregabalin 75 MG CAP PO SCH ×2 (09:31→20:59)
[2021-02-21] MEDS: Lactated Ringer's 1,000 ML IV SCH ×3 (09:33→23:15)
[2021-02-21] MEDS: Lantus 1000 UNITS/10 ML VIAL SC SCH ×2 (09:43→21:01)
[2021-02-21] MEDS ORDERED: Naloxone HCl 0.4 mg/ml Vial IV PRN (10:07)
[2021-02-21 11:27] LABS: Band 7 % (5-11); Eosinophils 8 % (0-10); Lymphocytes 19 % (21-51); MDiff Complete? YES; Monocytes 20 % (0-10); Neutrophil 45 % (42-75); Platelet Morphology Comment Appears Decreased; RBC Morphology Normal
[2021-02-21] MEDS: Fentanyl 100 MCG/2 ML VIAL SLOW IVP PRN ×3 (12:28→21:09)
[2021-02-21] MEDS: Octreotide Acetate 500 MCG/ML VIAL SC SCH ×2 (14:57→21:02)
[2021-02-21] MEDS: STERILE WATER FS SCH ×2 (17:14→23:10)
[2021-02-21] MEDS: AMBISOME FS SCH ×2 (17:14→23:10)
[2021-02-21] MEDS: ADMIXTURE FEE FS SCH ×2 (17:14→23:10)
[2021-02-21] MEDS ORDERED: Acetaminophen 325 MG TAB PO PRN (19:23)
[2021-02-22] MEDS: Fentanyl 100 MCG/2 ML VIAL SLOW IVP PRN ×4 (01:33→15:39)
[2021-02-22] MEDS: [UNRECOGNIZED DRUG - REMARK] FS SCH ×3 (05:52→17:45)
[2021-02-22] MEDS: STERILE WATER FS SCH ×3 (05:52→17:44)
[2021-02-22] MEDS: ADMIXTURE FEE FS SCH ×3 (05:52→17:44)
[2021-02-22] MEDS: AMBISOME FS SCH ×3 (05:52→17:44)
[2021-02-22] MEDS: Octreotide Acetate 500 MCG/ML VIAL SC SCH ×2 (05:54→15:29)
[2021-02-22 05:59] LABS: Mean Corpuscular HGB CONC 34.1 g/dL (32.0-36.0); Mean Corpuscular Hemoglobin 31.4 pg (27.0-31.0); Mean Platelet Volume 8.9 fL (7.4-10.4); Platelet Count 56 thou/uL (130-400); RBC Distribution Width 13.4 % (11.5-14.5); Red Blood Cell (RBC) Count 3.18 mill/uL (4.20-5.40); White Blood Cell (WBC) Count 3.3 thou/uL (4.8-10.8)
[2021-02-22] MEDS: Lactated Ringer's 1,000 ML IV SCH ×2 (06:03→16:47)
[2021-02-22 06:21] LABS: ALT (SGPT) 19 U/L (8-55); AST (SGOT) 32 U/L (5-34); Albumin 3.4 g/dL (3.5-5.0); Alkaline Phosphatase 106 U/L (40-110); Anion Gap 12 mmol/L (10-20); BUN (Urea Nitrogen) 31 mg/dL (9.8-20.1); Bilirubin, Total 2.4 mg/dL (0.2-1.2); Calc. Creatinine Clearance 40 mL/min (70-130); Calcium 9.1 mg/dL (7.8-10.44); Carbon Dioxide 23 mmol/L (22-29); Chloride 105 mmol/L (98-107); Glucose 76 mg/dL (70-105); Potassium 3.9 mmol/L (3.5-5.1); Protein, Total 7.4 g/dL (6.0-8.3); Sodium 136 mmol/L (136-145)
[2021-02-22 06:37] LABS: Band 6 % (5-11); Eosinophils 10 % (0-10); Lymphocytes 14 % (21-51); MDiff Complete? YES; Monocytes 22 % (0-10); Neutrophil 48 % (42-75); Platelet Morphology Comment Appears Decreased
[2021-02-22] MEDS ORDERED: Pantoprazole 40 MG VIAL IVP SCH (09:00)
[2021-02-22] MEDS: Cholecalciferol 1,000 UNITS (25 MCG) TAB PO SCH (09:27)
[2021-02-22] MEDS: Ascorbic Acid 500 mg Chewable Tablet PO SCH (09:28)
[2021-02-22] MEDS: Pregabalin 75 MG CAP PO SCH (09:28)
[2021-02-22] MEDS: Midodrine HCl 5 MG TAB PO SCH ×2 (09:29→15:36)
[2021-02-22] MEDS: Ferrous Sulfate 325 MG TAB PO SCH (09:30)
[2021-02-22] MEDS: Rifaximin 550 MG TAB PO SCH (09:30)
[2021-02-22] MEDS: Atenolol 50 MG TAB PO SCH (09:32)
[2021-02-22] MEDS: Lantus 1000 UNITS/10 ML VIAL SC SCH (09:40)
[2021-02-22] MEDS: hydrOXYzine 25 MG TAB PO PRN (09:44)
[2021-02-22 19:54] VITALS: BP 147/89; TEMP 98.3
== END 2021-02-22 21:18 | disposition short-term general hospital (02) | DRG 432 ==
LOC: ERS 21:40 → T4-B 02-18 00:26
PROVIDERS: ADMIT Family Medicine; ATTEND Family Medicine
DX: K74.60 Unspecified cirrhosis of liver (principal); K85.90 Acute pancreatitis without necrosis or infection, unspecified; K65.2 Spontaneous bacterial peritonitis; N17.9 Acute kidney failure, unspecified; B37.49 Other urogenital candidiasis; Z20.822 Contact with and (suspected) exposure to COVID-19; F41.9 Anxiety disorder, unspecified; K75.4 Autoimmune hepatitis; D69.6 Thrombocytopenia, unspecified; K80.20 Calculus of gallbladder without cholecystitis without obstruction; R31.0 Gross hematuria; I12.9 Hypertensive chronic kidney disease with stage 1 through stage 4 chronic kidney disease, or unspecified chronic kidney disease; E11.22 Type 2 diabetes mellitus with diabetic chronic kidney disease; N18.9 Chronic kidney disease, unspecified; Z79.4 Long term (current) use of insulin; Z98.890 Other specified postprocedural states; Z79.899 Other long term (current) drug therapy; Z90.710 Acquired absence of both cervix and uterus
CPT/HCPCS: 36415; 36416; 49083; 71045; 74176; 74181; 76705; 78227; 80053; 81001; 82274; 82570; 83605; 83690; 83880; 84145; 84484; 84540; 85025; 85060; 85610; 85730; 86301; 87040; 87070; 87086; 87205; 87631; 89051; 93005; 93010; 96372; 96374; 96375; A4217; A9537; C9113; J0289; J0696; J1815; J1956; J2270; J2354; J2405; J3010; J3490; J7050; J7120; P9047; U0003; U0005

== ENCOUNTER 2022-10-26 03:57 | Inpatient (IN) | payer MEDICARE, MEDICAID ==
[2022-10-26 05:13] LABS: #Monocytes 0.2 thou/uL (0.11-0.59); #Neutrophils 3.6 thou/uL (1.40-6.50); %Eosinophils 0.2 % (0.0-10.0); %Lymphocytes 13.9 % (21.0-51.0); %Monocytes 5.4 % (0.0-10.0); %Neutrophils 80.1 % (42.0-75.0); Hematocrit 31.1 % (36.0-47.0); Hemoglobin 9.9 g/dL (12.0-16.0); Mean Corpuscular HGB CONC 31.8 g/dL (32.0-36.0); Mean Corpuscular Hemoglobin 26.4 pg (27.0-31.0); Mean Corpuscular Volume 82.9 fl (78.0-98.0); Mean Platelet Volume 9.1 fL (7.4-10.4); Platelet Count 136 10x3/uL (130-400); RBC Distribution Width 13.2 % (11.5-14.5); Red Blood Cell (RBC) Count 3.75 mill/uL (4.20-5.40); White Blood Cell (WBC) Count 4.5 10x3/uL (4.8-10.8)
[2022-10-26 05:43] LABS: ALT (SGPT) 12 U/L (8-55); AST (SGOT) 16 U/L (5-34); Albumin 4.5 g/dL (3.5-5.0); Alkaline Phosphatase 176 U/L (40-110); Anion Gap 15 mmol/L (10-20); BUN (Urea Nitrogen) 36 mg/dL (9.8-20.1); Bilirubin, Total 0.2 mg/dL (0.2-1.2); Calc. Creatinine Clearance 0 mL/min (70-130); Calcium 9.8 mg/dL (7.8-10.44); Carbon Dioxide 23 mmol/L (22-29); Chloride 104 mmol/L (98-107); Estimated GFR 23; Glucose 229 mg/dL (70-105); Lipase 35 U/L (8-78); Potassium 3.9 mmol/L (3.5-5.1); Protein, Total 8.5 g/dL (6.0-8.3); Sodium 138 mmol/L (136-145)
[2022-10-26] MEDS ORDERED: Ketorolac Tromethamine 30 MG/ML VIAL ONE (05:51)
[2022-10-26] MEDS ORDERED: Ondansetron PF 4 MG/2 ML Vial ONE ×3 (05:51→11:34)
[2022-10-26 07:10] LABS: Bacteria/HPF None Seen HPF (None Seen); Bilirubin Negative (Negative); Blood, Urine 1+ (Negative); CAUTI Indications for Culture Pelvic or flank pain; Clarity Clear (Clear); Glucose, Urine (Dipstick) 150 mg/dL (Negative); Ketone, Urine Negative (Negative); Leukocyte Negative Leu/uL (Negative); Nitrite Negative (Negative); Protein, Urine (Dipstick) 600 mg/dL (Neg-Trace); Specific Gravity, Urine 1.012 (1.002-1.036); Squamous Epithelial None Seen HPF (0-3); Urobilinogen Normal mg/dL (Less than 2); WBC/HPF 0-3 HPF (0-3)
[2022-10-26 07:11] LABS: Urine Culture Reflex No No
[2022-10-26] MEDS ORDERED: fentaNYL 50 mcg/mL 1 mL Vial ONE ×2 (08:52→11:33)
[2022-10-26] MEDS ORDERED: hydrALAZINE 20 MG/ML VIAL ONE (10:29)
[2022-10-26 11:07] LABS: Troponin I Less than 0.010 ng/mL (< 0.028)
[2022-10-26] MEDS ORDERED: Fleet Saline Enema 133 ML BOT PR PRN (12:22)
[2022-10-26] MEDS ORDERED: Promethazine HCl 12.5 MG in Sodium Chloride 0.9% 50 ML IVPB PRN ×2 (12:22→16:42)
[2022-10-26] MEDS ORDERED: Acetaminophen 325 MG TAB PO PRN (12:25)
[2022-10-26] MEDS ORDERED: Dextrose 50% Abboject 50 ML SYRINGE SLOW IVP PRN (12:25)
[2022-10-26] MEDS ORDERED: HumaLOG 300 UNITS/3 ML VIAL SC PRN ×2 (12:25)
[2022-10-26] MEDS ORDERED: Glucagon 1 MG/ML KIT IM PRN (12:25)
[2022-10-26] MEDS ORDERED: Ondansetron PF 4 MG/2 ML Vial IVP PRN ×2 (12:25→17:11)
[2022-10-26] MEDS ORDERED: Dextrose 5% in Water 1,000 ML IV PRN (12:25)
[2022-10-26] MEDS ORDERED: hydrALAZINE 20 MG/ML VIAL SLOW IVP PRN (12:25)
[2022-10-26] MEDS ORDERED: Sodium Chloride 0.9% 500 ML IV SCH (12:30)
[2022-10-26] MEDS ORDERED: Pantoprazole 40 MG VIAL IVP SCH ×4 (12:30→21:00)
[2022-10-26] MEDS ORDERED: Promethazine HCl 25 MG/ML VIAL ONE (12:55)
[2022-10-26] MEDS ORDERED: Fentanyl 100 MCG/2 ML VIAL SLOW IVP PRN (13:00)
[2022-10-26] MEDS ORDERED: Mineral Oil ENEMA PR PRN (13:00)
[2022-10-26] MEDS ORDERED: cloNIDine 0.2mg/24 Hour PATCH TD SCH (14:00)
[2022-10-26] MEDS: Sodium Chloride 0.9% 1,000 ML IV SCH ×2 (14:31→21:43)
[2022-10-26] MEDS: Metoprolol Tartrate 5 MG/5 ML VIAL IVP SCH ×2 (14:31→19:53)
[2022-10-26 14:45] VITALS: BMI 28.4
[2022-10-26] MEDS: fentaNYL 50 mcg/mL 1 mL Vial SLOW IVP PRN ×2 (15:03→17:03)
[2022-10-26 16:44] LABS: Phosphorus 4.4 mg/dL (2.3-4.7)
[2022-10-26] MEDS: hydrALAZINE 20 MG/ML VIAL SLOW IVP PRN (17:04)
[2022-10-26] MEDS ORDERED: FENTANYL 500 MCG/10 ML VIAL 2,000 MCG in Sodium Chloride 0.9% 60 ML IV PRN (17:11)
[2022-10-26] MEDS ORDERED: diphenhydrAMINE 25 MG CAP PO PRN (17:11)
[2022-10-26] MEDS ORDERED: diphenhydrAMINE 50 MG/ML VIAL IVP PRN (17:11)
[2022-10-26] MEDS ORDERED: diphenhydrAMINE 50 MG/ML VIAL IM PRN (17:11)
[2022-10-26] MEDS ORDERED: Promethazine HCl 25 MG/ML VIAL IM PRN (17:11)
[2022-10-26] MEDS ORDERED: Naloxone HCl 0.4 mg/ml Vial IV PRN (17:11)
[2022-10-26] MEDS ORDERED: Communication Order-Pharmacy FS SCH (17:15)
[2022-10-26 18:09] LABS: Creatinine, Urine 45.16 mg/dL (47-110)
[2022-10-26] MEDS: Metoclopramide HCl 10 MG/2 ML VIAL IVP SCH (19:59)
[2022-10-26] MEDS: Heparin 5,000 UNITS/ML VIAL SC SCH (20:00)
[2022-10-26] MEDS: Pantoprazole 40 MG VIAL IVP SCH (20:01)
[2022-10-26] MEDS: Tacrolimus 1 MG CAP PO SCH (20:28)
[2022-10-26] MEDS ORDERED: Polyethylene Glycol 3350 17 GM Packet PO SCH (21:00)
[2022-10-26] MEDS: MYCOPHENOLATE MOFETIL 200 MG/ML PO SCH (21:43)
[2022-10-27] MEDS: hydrALAZINE 20 MG/ML VIAL SLOW IVP PRN ×3 (00:49→09:33)
[2022-10-27] MEDS: Metoprolol Tartrate 5 MG/5 ML VIAL IVP SCH ×3 (01:37→14:27)
[2022-10-27 04:42] LABS: #Monocytes 0.6 thou/uL (0.11-0.59); #Neutrophils 4.7 thou/uL (1.40-6.50); %Basophils 0.2 % (0.0-1.0); %Lymphocytes 12.8 % (21.0-51.0); %Monocytes 9.7 % (0.0-10.0); %Neutrophils 76.6 % (42.0-75.0); Hematocrit 32.6 % (36.0-47.0); Hemoglobin 10.1 g/dL (12.0-16.0); Mean Corpuscular Volume 83.8 fl (78.0-98.0); Platelet Count 150 10x3/uL (130-400); Red Blood Cell (RBC) Count 3.89 mill/uL (4.20-5.40); White Blood Cell (WBC) Count 6.1 10x3/uL (4.8-10.8)
[2022-10-27 05:19] LABS: ALT (SGPT) 10 U/L (8-55); AST (SGOT) 12 U/L (5-34); Albumin 3.9 g/dL (3.5-5.0); Alkaline Phosphatase 171 U/L (40-110); Anion Gap 15 mmol/L (10-20); BUN (Urea Nitrogen) 37 mg/dL (9.8-20.1); Bilirubin, Total 0.3 mg/dL (0.2-1.2); Calc. Creatinine Clearance 34 mL/min (70-130); Calcium 8.8 mg/dL (7.8-10.44); Carbon Dioxide 20 mmol/L (22-29); Chloride 112 mmol/L (98-107); Estimated GFR 24; Globulin 3.9 g/dL (2.4-3.5); Glucose 201 mg/dL (70-105); Magnesium 1.7 mg/dL (1.6-2.6); Potassium 3.7 mmol/L (3.5-5.1); Protein, Total 7.8 g/dL (6.0-8.3); Sodium 143 mmol/L (136-145)
[2022-10-27] MEDS ORDERED: Naloxegol 12.5 MG TAB PO SCH (07:30)
[2022-10-27] MEDS: Polyethylene Glycol 3350 17 GM Packet PO SCH ×2 (08:29→08:46)
[2022-10-27] MEDS: MYCOPHENOLATE MOFETIL 200 MG/ML PO SCH (08:29)
[2022-10-27] MEDS: Tacrolimus 1 MG CAP PO SCH (08:29)
[2022-10-27] MEDS: Metoclopramide HCl 10 MG/2 ML VIAL IVP SCH (08:30)
[2022-10-27] MEDS: Heparin 5,000 UNITS/ML VIAL SC SCH ×2 (08:30→14:27)
[2022-10-27] MEDS: Pantoprazole 40 MG VIAL IVP SCH (08:30)
[2022-10-27] MEDS: Sodium Chloride 0.9% 1,000 ML IV SCH ×2 (08:47→11:15)
[2022-10-27] MEDS ORDERED: cloNIDine 0.2 MG TAB PO SCH ×2 (09:45→21:00)
[2022-10-27] MEDS ORDERED: Magnesium 2 GM/50 ML(in water) 2 GM in Premix Bag 1 BAG IVPB SCH (10:45)
[2022-10-27 11:47] VITALS: BP 149/74; TEMP 97.7
[2022-10-28] MEDS ORDERED: Calcitriol 0.25 MCG CAP PO SCH (09:00)
[2022-10-28] MEDS ORDERED: Doxazosin 2 MG TAB PO SCH (09:00)
[2022-10-29 14:08] LABS: Tacrolimus 6.5 ng/mL (2.0-20.0)
== END 2022-10-27 14:30 | disposition short-term general hospital (02) | DRG 74 ==
LOC: ERS 03:57 → 2NO 11:40
PROVIDERS: ADMIT Family Medicine; ATTEND Internal Medicine
DX: E11.43 Type 2 diabetes mellitus with diabetic autonomic (poly)neuropathy (principal); Z94.4 Liver transplant status; N17.9 Acute kidney failure, unspecified; N18.4 Chronic kidney disease, stage 4 (severe); N25.81 Secondary hyperparathyroidism of renal origin; E11.40 Type 2 diabetes mellitus with diabetic neuropathy, unspecified; R33.9 Retention of urine, unspecified; K31.84 Gastroparesis; I16.0 Hypertensive urgency; D63.1 Anemia in chronic kidney disease; E78.5 Hyperlipidemia, unspecified; I12.9 Hypertensive chronic kidney disease with stage 1 through stage 4 chronic kidney disease, or unspecified chronic kidney disease; E11.22 Type 2 diabetes mellitus with diabetic chronic kidney disease; Z88.5 Allergy status to narcotic agent; Z88.6 Allergy status to analgesic agent; Z79.899 Other long term (current) drug therapy; Z90.710 Acquired absence of both cervix and uterus; Z83.3 Family history of diabetes mellitus; Z82.49 Family history of ischemic heart disease and other diseases of the circulatory system; Z20.822 Contact with and (suspected) exposure to COVID-19
CPT/HCPCS: 36415; 36416; 74176; 80053; 80197; 81001; 82306; 82570; 83690; 83735; 83970; 84100; 84155; 84156; 84165; 84166; 84484; 85025; 87635; 93005; C9113; J0360; J1644; J1815; J1885; J2405; J2550; J2765; J3010; J3475; J3490; J7050; J7507; J7517

== ENCOUNTER 2023-09-09 09:07 | Emergency (ER) | payer MEDICARE, MEDICAID | END 2023-09-09 11:39 | disposition home or self-care (01) | LOC: ERS 09:07 | DX: M19.032 Primary osteoarthritis, left wrist (principal); M25.532 Pain in left wrist; I10 Essential (primary) hypertension; E11.42 Type 2 diabetes mellitus with diabetic polyneuropathy; D64.9 Anemia, unspecified; Z79.4 Long term (current) use of insulin; Z79.899 Other long term (current) drug therapy ==

== ENCOUNTER 2024-02-18 10:49 | Outpatient (CLI) | payer MEDICARE, MEDICAID ==
[2024-02-18 13:00] LABS: #Basophils Less than 0.03 10x3/uL (0.0-0.2); %Basophils 0.2 % (0.0-1.0); %Eosinophils 1.2 % (0.0-10.0); %Lymphocytes 31.2 % (21.0-51.0); %Monocytes 12.4 % (0.0-10.0); %Neutrophils 54.8 % (42.0-75.0); Hematocrit 30.8 % (36.0-47.0); Hemoglobin 9.5 g/dL (12.0-16.0); Mean Corpuscular HGB CONC 30.8 g/dL (32.0-36.0); Mean Corpuscular Hemoglobin 27.7 pg (27.0-31.0); Mean Corpuscular Volume 89.8 fL (78.0-98.0); Mean Platelet Volume 9.1 fL (7.4-10.4); Platelet Count 220 10x3/uL (130-400); RBC Distribution Width 14.7 % (11.5-14.5); Red Blood Cell (RBC) Count 3.43 mill/uL (4.20-5.40)
[2024-02-18 13:15] LABS: INR-International Normal Ratio 0.9; PTT 33.7 sec (22.9-36.1); Prothrombin Time 12.5 sec (12.0-14.7)
[2024-02-18 13:28] LABS: Anion Gap 16 mmol/L (10-20); BUN (Urea Nitrogen) 23 mg/dL (9.8-20.1); Calc. Creatinine Clearance 0 mL/min (70-130); Calcium 9.8 mg/dL (7.8-10.44); Carbon Dioxide 31 mmol/L (22-29); Chloride 95 mmol/L (98-107); Estimated GFR 9; Glucose 132 mg/dL (70-105); Potassium 4.3 mmol/L (3.5-5.1); Sodium 138 mmol/L (136-145)
[2024-02-18 13:29] LABS: ALT (SGPT) 17 U/L (8-55); AST (SGOT) 15 U/L (5-34); Albumin 4.2 g/dL (3.5-5.0); Alkaline Phosphatase 195 U/L (40-110); Bilirubin, Direct 0.1 mg/dL (0.1-0.3); Bilirubin, Total 0.5 mg/dL (0.2-1.2)
== END 2024-02-18 10:50 | disposition home or self-care (01) ==
LOC: LABBT 10:49
PROVIDERS: ATTEND Orthopaedic Surgery
DX: Z01.818 Encounter for other preprocedural examination (principal); T84.84XA Pain due to internal orthopedic prosthetic devices, implants and grafts, initial encounter
CPT/HCPCS: 80048; 80076; 85025; 85610; 85730; 93005; 93010

== ENCOUNTER 2024-02-19 06:35 | Day surgery (SDC) | payer MEDICARE, MEDICAID ==
[2024-02-18 11:25] VITALS: BMI 26.2
[2024-02-19] MEDS ORDERED: Midazolam HCl 2 mg/2 ml Vial ONE (08:06)
[2024-02-19] MEDS ORDERED: fentaNYL 50 mcg/mL 1 mL Vial ONE ×2 (08:06→10:14)
[2024-02-19] MEDS ORDERED: Ropivacaine 0.5% HCl/PF (150 MG/30 ML VIAL) ONE (08:06)
[2024-02-19] MEDS ORDERED: CEFAZOLIN 2 GM VIAL ONE (09:51)
[2024-02-19] MEDS ORDERED: Ketamine In 0.9 % NaCl 50 MG/5 ML SYRINGE ONE (09:56)
[2024-02-19] MEDS ORDERED: PROPOFOL 20 ML ONE (09:57)
[2024-02-19] MEDS ORDERED: Lidocaine 2% PF 5 ML VIAL ONE (09:57)
[2024-02-19] MEDS ORDERED: Propofol 1,000 MG/100 ML VIAL IV ONE (10:08)
[2024-02-19] MEDS ORDERED: ePHEDrine Sulfate 50 MG/10 ML VIAL ONE (10:27)
[2024-02-19] MEDS ORDERED: PHENYLEPHRINE-NS 100 MCG/ML 10 ML SYRINGE ONE (10:58)
== END 2024-02-19 13:08 | disposition home or self-care (01) ==
LOC: SDC 06:35
PROVIDERS: ATTEND Orthopaedic Surgery
PROC: 0QBJ0ZZ Excision of Right Fibula, Open Approach (ICD-10-PCS; principal; 2024-02-19)
PROC: 3E0T3BZ Introduction of Anesthetic Agent into Peripheral Nerves and Plexi, Percutaneous Approach (ICD-10-PCS; 2024-02-19)
DX: T84.84XA Pain due to internal orthopedic prosthetic devices, implants and grafts, initial encounter (principal); S82.841E Displaced bimalleolar fracture of right lower leg, subsequent encounter for open fracture type I or II with routine healing; I10 Essential (primary) hypertension; E10.40 Type 1 diabetes mellitus with diabetic neuropathy, unspecified; E78.00 Pure hypercholesterolemia, unspecified; M21.372 Foot drop, left foot; Z98.49 Cataract extraction status, unspecified eye; Z85.43 Personal history of malignant neoplasm of ovary; Z90.710 Acquired absence of both cervix and uterus; Z88.1 Allergy status to other antibiotic agents; Z88.5 Allergy status to narcotic agent; Z88.8 Allergy status to other drugs, medicaments and biological substances; Z79.02 Long term (current) use of antithrombotics/antiplatelets; Z79.82 Long term (current) use of aspirin; Z79.899 Other long term (current) drug therapy; X58.XXXD Exposure to other specified factors, subsequent encounter; Y83.1 Surgical operation with implant of artificial internal device as the cause of abnormal reaction of the patient, or of later complication, without mention of misadventure at the time of the procedure
CPT/HCPCS: 27635; 64445; 73600; 82962; J2250; J2704 ×2; J2795; J3010; J3490; 36416